=== PATIENT | male | born 1950 | race Caucasian/White ===

== ENCOUNTER 2020-10-29 08:44 | Outpatient (REF) | payer MEDICARE, OTHER, SELFPAY | END 2020-10-29 08:45 | disposition home or self-care (01) | LOC: HO.HMGCLDS 08:44 | PROVIDERS: PCP Internal Medicine; Visit Provider Internal Medicine | DX: Z20.822 Contact with and (suspected) exposure to COVID-19 (principal) | CPT/HCPCS: 36415; C9803; U0003; U0005 ==

== ENCOUNTER 2024-03-14 13:53 | Outpatient (AMB) | payer MEDICARE, OTHER, SELFPAY ==
--- NOTE | 2024-03-14 14:26 | MHC.OFFWIV ---
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 He states it has been there for a week or 2. It is very itchy and it just seems to be getting worse. He states his son had the same rash and he was given Kenalog cream and it went away. He is here asking for the Kenalog cream. Denies any fevers. He states he does have some sensitivities and was using the wrong laundry detergent and noticed he got itchy so he changed at. However this is a patch that has been persistent on his right ankle [facility] Social History Patient Tobacco Use Status: Never used Tobacco Review of Systems Const All systems reviewed & are unremarkable except as noted in HPI and below Physical Exam Vital Signs: Last Vital Signs Temp 98.0 F 03/14/24 14:30 Pulse 98 03/14/24 14:30 BP 142/82 H 03/14/24 14:30 Pulse Ox 97 03/14/24 14:30 Oxygen Delivery Method Room Air 03/14/24 14:30 BMI result Body Mass Index 27.4 Const General: cooperative, healthy appearing, comfortable, no acute distress and well developed Orientation/consciousness: patient oriented x3 Limitations: no limitations Eyes General: appearance normal, both eyes and all related structures Resp Effort & Inspection: normal respiratory effort and able to speak in complete sentences Skin Other: right lower extremity lateral near ankle has a slightly raised and erythematous, macular papular rash with crusted lesions; no warmth or other signs of infection noted Neuro General: patient oriented x3 Assessment & Plan Assessment & Plan (1) Dermatitis: Code(s): L30.9 - Dermatitis, unspecified Plan: Sent Kenalog cream to pharmacy Plan See above Medications: New triamcinolone acetonide 0.025% 1 appl topical BID 80 grams 0RF Coding Level of Care Code New Pt Level 3 (11960) Diagnoses Dermatitis L30.9
[2024-03-14 14:30] VITALS: BP 142/82; PULSE 98; TEMP 36.7; O2SAT 97; BMI 27.4
== END 2024-03-14 15:09 | disposition home or self-care (01) ==
PROVIDERS: PCP Internal Medicine; Visit Provider Physician Assistant
DX: L30.9 Dermatitis, unspecified (principal)
CPT/HCPCS: 99203

== ENCOUNTER 2024-04-22 17:09 | Emergency (ER) | payer MEDICARE, OTHER, SELFPAY ==
--- NOTE | ~2024-04-22 | CT_ITS ---
EXAMINATION: CT HEAD WITHOUT CONTRAST CLINICAL INFORMATION: Stroke protocol COMPARISON: None. TECHNIQUE: Multidetector CT examination of the head is performed without contrast. This CT examination was performed using dose optimization techniques as appropriate, variously including the following: *Automated exposure control *Adjustment of mA and/or kV according to patient size (this includes techniques or standardized protocols for targeted exams where dose is matched to indication/reason for exam; i.e. extremities or head) *Use of iterative reconstruction technique DLP: 1168 mGy-cm FINDINGS: There are artifacts present. There is no evidence of a recent intracranial hemorrhage or extra-axial collection. The midline structures are nondisplaced. The ventricles, cisterns, and sulci are within normal limits. There is no evidence of an intra-axial mass. There are no suspicious focal areas of abnormal brain attenuation. The baez-white interface is within normal limits. There is no evidence of acute territorial infarct. Moderately severe white matter low attenuation scattered bilaterally could be related to microangiopathy. The paranasal sinuses and mastoids are within normal limits. CT/CT head for stroke IMPRESSION: 1. There is no evidence of a recent intracranial hemorrhage. 2. No acute infarct. 3. Nonspecific white matter disease. This critical result was discussed with at 1741 on 04/22/24 and it was ascertained that the content and urgency of the report was understood at the time of direct communication.
--- NOTE | ~2024-04-22 | CT_ITS ---
EXAMINATION: CT ANGIOGRAM HEAD CT ANGIOGRAM NECK CLINICAL INFORMATION: Reason for Exam Stroke Protocol COMPARISON: None. TECHNIQUE: Initial noncontrast throw out clerk imaging of the head and neck was performed. Comparison is made with noncontrast head CT from earlier today. Test bolus sequences followed by intravenous administration 70 mL of Omnipaque 350. Helical imaging was performed in the axial plane from the aortic arch to the skull vertex. Delayed postcontrast imaging of the head was also performed. The data was processed at the hybrid technologist's workstation for generation of MIP sequences. Angled MIPs and volume rendered reformatted images were also generated at an offline 3D workstation. Stenoses are assessed in accordance with Vogel et al. Quantification of Carotid Stenosis on CT Angiography. AJR 2006. 27(1):13-19. This CT examination was performed using dose optimization techniques as appropriate, variously including the following: *Automated exposure control *Adjustment of mA and/or kV according to patient size (this includes techniques or standardized protocols for targeted exams where dose is matched to indication/reason for exam; i.e. extremities or head) *Use of iterative reconstruction technique DLP: 1548.72 mGy-cm mGy-cm FINDINGS: CT HEAD: No abnormal intracranial enhancement is visualized. Please see separately dictated CT head for additional findings. CTA HEAD: Anterior circulation: Right internal carotid artery: Atherosclerosis without flow-limiting stenosis. Right middle cerebral artery: Short segment occlusion in the right M2 posterior division with distal reconstitution. Right anterior cerebral artery: No hemodynamically significant stenosis. Left internal carotid artery: Atherosclerosis with areas of [id number] stenosis, most prominent in the supraclinoid segment. Left middle cerebral artery: No hemodynamically significant stenosis. Left anterior cerebral artery: No hemodynamically significant stenosis. Posterior circulation: Right vertebral artery: No hemodynamically significant stenosis. Left vertebral artery: No hemodynamically significant stenosis. Basilar artery: No hemodynamically significant stenosis. Right posterior cerebral artery: No hemodynamically significant stenosis. Left posterior cerebral artery: origin. Patent. No high flow vascular malformation or significant aneurysmal dilatation is visualized. The major dural venous sinuses are grossly within normal limits given arterial technique. CTA NECK: Aortic arch: Normal anatomy. Atherosclerosis of the thoracic aorta and proximal great vessels. Right common carotid artery: No hemodynamically significant stenosis. Right proximal internal carotid artery: Atherosclerosis without flow-limiting stenosis. Right mid/distal internal carotid artery: No hemodynamically significant stenosis. Left common carotid artery: No hemodynamically significant stenosis. Left proximal internal carotid artery: Atherosclerosis without flow-limiting stenosis. Left mid/distal internal carotid artery: No hemodynamically significant stenosis. Right vertebral artery: Severe stenosis at the origin. Otherwise patent. Left vertebral artery: No hemodynamically significant stenosis. CT NECK: [place] tonsilliths. Multilevel degenerative changes of the cervical spine with areas of moderate to high-grade canal stenosis noted. CT/CT angio head neck stroke IMPRESSION: CTA NECK: Severe stenosis at the right vertebral artery origin. Otherwise, no flow-limiting stenosis in the cervical carotid and vertebral arteries. Multilevel degenerative changes of the cervical spine with areas of moderate to high-grade canal stenosis noted. There is symptomatology referrable to this region, dedicated cervical spine MRI is recommended for further evaluation. CTA HEAD: Short segment occlusion of the right M2 posterior division with distal reconstitution. This critical result was discussed Dr. Manning at 6:08pm on 04/22/2024 and it was ascertained that the content and urgency of the report was understood at the time of direct communication.
[2024-04-22 17:13] VITALS: BP 173/87; PULSE 99; RESP 18; TEMP 36.8; O2SAT 99; BMI 26.8
--- NOTE | 2024-04-22 17:23 | ED_ITS ---
HPI - General Adult General Chief complaint: Stroke Stated complaint: slurred speech, drooling, weakness Time Seen by Provider: 04/22/24 17:33 Source: patient and family ([id number], Christine who is a nurse here at [facility]) Mode of arrival: ambulatory Limitations: no limitations History of Present Illness ED Provider: Dr. Alexis Manning HPI narrative: 74-year-old male with a history of hypertension, hyperlipidemia and kidney disease who presents emergency department for evaluation of left facial droop and drooling. Patient states he woke up at 07:00 hours and was feeling well. At 09:30 hours this morning he noted drooling but did not think much of the symptom. His family checked in on him at around 14:00 hours and thought that his jaw looked funny. His family checked in on him again a proximally 1 hour prior to coming to the emergency department and felt that he had a left facial droop and brought him to the emergency department to be seen. 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 The patient denied difficulty with word finding, headache, numbness or weakness. Related Data Home Medications ?Medication ?Instructions ?Recorded ?Confirmed amlodipine 10 mg tablet 10 mg PO DAILY 03/14/24 atenolol 25 mg tablet 25 mg PO DAILY 03/14/24 atorvastatin 10 mg tablet 10 mg PO DAILY 03/14/24 hydrochlorothiazide 25 mg tablet 25 mg PO DAILY 03/14/24 valsartan 160 mg tablet 160 mg PO DAILY 03/14/24 valsartan 320 mg tablet 320 mg PO DAILY 03/14/24 Previous Rx's ?Medication ?Instructions ?Recorded triamcinolone acetonide 0.025 % 1 appl topical BID #80 grams 03/14/24 topical cream Allergies Allergy/AdvReac Type Severity Reaction Status Date / Time pollen extracts Allergy congestion Verified 04/22/24 17:21 Review of Systems 2 Review of Systems: Yes all other systems are reviewed and are negative PMFSH Past Medical History PMF Narrative: Social history: The patient denies tobacco use. He states that he drinks 1 or 2 glasses of beer or 1 or 2 glasses of wine per day. He denies drug use Social History Social History Patient Tobacco Use Status: Never used Tobacco Advance Directives Date on File: 04/22/24 Physical Exam ED Vital Signs: Vital Signs - 24 hr 04/22/24 17:13 04/22/24 18:13 04/22/24 18:44 Temperature 98.2 F Pulse Rate 99 100 100 Respiratory Rate 18 14 16 Blood Pressure 173/87 H 167/87 H 151/82 H Pulse Oximetry 99 98 98 Oxygen Delivery Method Room Air Room Air Room Air 04/22/24 18:59 Temperature Pulse Rate 99 Respiratory Rate 16 Blood Pressure 153/89 H Pulse Oximetry 98 Oxygen Delivery Method Room Air BMI result Body Mass Index 26.8 Vital signs revealed elevated blood pressure 173/87 which improved to 150 1/82 without treatment. Vital signs were otherwise Exam: General: Awake, alert in no distress Head: Normocephalic, atraumatic, patient has a left facial droop that spares the forehead EENT: PERRL, Lids normal, sclera normal, conjunctiva normal, nose normal , ears normal, throat without erythema or exudates Neck: Supple, no adenopathy Lung: breath sounds symmetric, no wheezing, rales or rhonchi Chest: symmetric movement, nontender Heart: Irregular irregular rhythm with normal rate, normal S1, S2 no murmurs or rubs Abdomen: soft, non-tender, nondistended, normal bowel sounds Back: no vertebral tenderness, no CVAT Extremities: no deformities, moves all extremities symmetrically Neuro: Awake, alert, oriented, normal speech, cranial nerves revealed a left facial droop which spares the forehead, moves all extremities symmetrically with normal strength Psych: Pleasant, cooperative NIH Stroke Scale Internal: Initial- Upon Arrival Level of Consciousness: Alert Level of Consciousness Questions: Answers both questions correctly Level of Consciousness Commands: Performs both tasks correctly Best Gaze: Normal Visual: No visual loss Facial Palsy: Minor paralyis Motor Arm (Right): No drift Motor Arm (Left): No drift Motor Leg (Right): No drift Motor Leg (Left): No drift Limb Ataxia: Absent Sensory: Normal Best Language: No aphasia Dysarthia: Normal Extinction and Inattention: No abnormality Score: 1 Course Course Course Narrative: This is an RME: Additional HPI, ROS, PE not included below will be deferred to primary provider. RME assessment and note performed by: Jolynn Davidson PA-C This is a 74-year-old male, with a history of hypertension, hyperlipidemia, and CKD stage 2, who presents emergency department with complaints of left-sided facial droop, drooling, trouble speaking. Patient states that he slept well and woke up feeling very tired this morning. His daughter who is with him states that at 8:00 a.m. he has appear to be okay however states that when she returned back home at 2:00 p.m. she noticed that he had a slight left-sided facial droop and was having trouble speaking. He reports that he did have uncontrolled drooling with leaning forward. Patient with slight left-sided facial droop, able to wrinkle forehead, no pronator drift. He is ambulatory.. Patient is hypertensive. He is not on blood thinners. Discussed case with my attending physician, Dr. Manning, stroke protocol initiated Plan: Stroke protocol, patient immediately brought back to the emergency room for further management Medications Administered Discontinued Medications Generic Name Dose Route Start Last Admin Trade Name Freq PRN Reason Stop Dose Admin Sodium Chloride 1,000 mls @ 999 mls/hr 04/22/24 18:08 04/22/24 18:14 Ns IV 04/22/24 19:08 999 mls/hr .Q1H1M STA Administration Iohexol 100 ml 04/22/24 17:46 04/22/24 17:46 Iohexol 350 Mg/Ml 100 Ml Infus..Btl IV 04/22/24 17:47 70 ml ONCE ONE Administration Medical Decision Making Medical Decision Making MDM Narrative: 74-year-old male with a history of hypertension, hyperlipidemia and kidney disease who presents emergency department for evaluation of left facial droop and drooling with last well-known time at 09:30 hours. Patient had no other concerning symptoms. Physical examination did reveal mild left facial droop which spared the forehead bilaterally. Patient's NIH stroke scale was 1. Patient did have an irregular irregular heart rate and 12 EKG is consistent with atrial fibrillation which is new onset. Differential diagnosis: ?Includes but is not limited to TIA, stroke, putnam palsy, anemia, electrolyte abnormalities, atrial fibrillation Following evaluation was ordered: CBC, BMP, PT/INR, PTT, troponin, lipid panel, urinalysis, urine tox, COVID-19, CT head without IV contrast, CT head and neck angiogram Patient was initially treated with the following: Normal saline x1 L IV Course: 19:23 My interpretation patient's laboratory evaluation: CBC was normal. INR elevated 1.2. PTT normal 28.6. BUN elevated 27 with a normal creatinine of 1.38, GFR was 50-no baseline values for comparison. Urinalysis revealed a high specific gravity otherwise unremarkable. Urine tox was negative. COVID-19 was negative. Lipid panel was normal. High sensitive troponin I was detectable but not elevated at 19.7 (normal range is less than 3.5-35) CT scan of the brain without IV contrast revealed white matter disease otherwise unremarkable. CT scan of head and neck angiogram revealed short segment occlusion of the MCA a in the right M2 posterior division with distal reconstitution. Given the right MCA M2 occlusion I did discuss this patient with our covering neurologist, Dr. Sheppard and he recommended that I contact [facility] interventional Neurology. Unfortunately, [facility]'s neuro interventionalist at this time a sick and there is no coverage therefore they are close to transfer. I did discuss the patient's presentation with the neuro interventionalist at [facility] and they did accept the patient as an ED to ED transfer. The neuro interventionalist recommended against starting heparin or antiplatelet medications at this time to avoid hemorrhagic she called when like the stroke starting you avoid hemorrhagic transformation of the stroke. Also, the patient was outside of the thrombolytics window and this was not considered. CT scan of the neck did reveal severe stenosis at the right vertebral artery origin. Otherwise, no flow-limiting stenosis in the cervical carotid and vertebral arteries. I did discuss the need for transfer with the patient and the patient's daughter and they did agree to transfer to [facility]. Patient will be sent by ALS ambulance. Admission/Observation Consideration of admission/observation: Escalation of care including admission/observation considered Lab Data MDM Lab Attestation statement: I reviewed the patient's lab results. 04/22/24 17:54 04/22/24 17:54 Labs: Lab Results 04/22/24 04/22/24 04/22/24 Range/Units 17:39 17:54 18:22 WBC 6.6 (4.8-10.8) X10*3/uL RBC 4.64 (4.60-5.80) X10*6/uL Hgb 14.1 (14.0-18.0) g/dl Hct 43.1 (42.0-52.0) % MCV 92.9 (80.0-98.0) fL MCH 30.4 (27.0-33.0) pg MCHC 32.7 (31.0-36.0) g/dl RDW 14.6 (11.0-16.0) % Plt Count 182 (160-400) X10*3/uL MPV 11.5 (9.4-12.4) fL Immature Gran % (Auto) 0.3 (0.0-0.4) % Neut % (Auto) 48.4 (45-73) % Lymph % (Auto) 35.7 (20-40) % [place] % (Auto) 13.1 H (2-11) % Eos % (Auto) 1.7 (0-4) % Baso % (Auto) 0.8 (0-2) % Lymph # (Auto) 2.3 (1.2-4.9) X10*3/uL Crowley # (Auto) 0.9 (0.1-1.2) X10*3/uL Eos # (Auto) 0.1 (0.0-0.4) X10*3/uL Baso # (Auto) 0.1 (0.0-0.2) X10*3/uL Abs Immat Gran (auto) 0.02 (0.00-0.03) X10*3/uL Absolute Neuts (auto) 3.2 (2.0-8.3) x10*3/uL Absolute Nucleated RBC 0.000 (0.0-0.012) X10*3/uL Nucleated RBC % (auto) 0.0 (0.0-0.2) /100WBC PT 14.3 H (11.1-13.3) SEC INR 1.2 H (0.9-1.1) APTT 28.6 (26.0-36.8) SEC Sodium 139 (135-145) mmol/L Potassium 3.5 (3.3-5.1) mmol/L Chloride 105 (96-108) mmol/L Carbon Dioxide 24 (22-29) mmol/L Anion Gap 14 (12-20) BUN 27 H (9-16) mg/dL Creatinine 1.38 (0.5-1.4) mg/dL Estim Creat Clear Calc 43.9 Estimated GFR 50 POC Glucose 87 (60-115) mg/dL Random Glucose 96 (60-115) mg/dL Calcium 9.5 (8.4-10.2) mg/dL Troponin I High Sens 19.7 (<3.5-35.0) ng/L Triglycerides 87 (<150) mg/dL Cholesterol 143 (<200) mg/dL LDL Cholesterol, Calc 77 (<100) mg/dL HDL Cholesterol 49 (>40) mg/dL Urine Color Yellow Urine Appearance Clear Urine pH 5.5 (5.0-9.0) Ur Specific [place] >= 1.030 H (1.005-1.025) Urine Protein Negative (Neg-Trace) mg/dL Urine Glucose (UA) Negative (Negative) mg/dL Urine Ketones Trace (Negative) mg/dL Urine Blood Negative (Negative) Urine Nitrite Negative (Negative) Ur Leukocyte Esterase Negative (Negative) Urine Opiates Screen Not Detected (Not Detect) Ur Buprenorphine Scrn Not Detected (Not Detect) ng/mL Ur Oxycodone Screen Not Detected (Not Detect) ng/mL Urine Methadone Screen Not Detected (Not Detect) ng/mL Urine Fentanyl Screen Not Detected (Not Detect) Ur Barbiturates Screen Not Detected (Not Detect) Ur Phencyclidine Scrn Not Detected (Not Detect) Ur Amphetamines Screen Not Detected (Not Detect) U Benzodiazepines Scrn Not Detected (Not Detect) Urine Cocaine Screen Not Detected (Not Detect) U Marijuana (THC) Screen Not Detected (Not Detect) COVID-19 (SADA) Negative (Negative) COVID-19 Clin Com See Note Independent Interpretation I performed an independent interpretation of an: EKG Interpretation: My interpretation of the patient's 12 EKG done at 17:35 hours is as follows: Atrial fibrillation with a rate of 104, normal QRS interval of 84, prolonged QTC interval of 489, Q-waves in 3 and AVF with no ST segment elevation or depression, no significant T-wave abnormalities. Radiology Impression Discussion of test interpretation with radiology: I discussed test interpretation with the radiologist Radiologist Impression: CT head for stroke IMPRESSION: 1. There is no evidence of a recent intracranial hemorrhage. 2. No acute infarct. 3. Nonspecific white matter disease. This critical result was discussed with at 1741 on 04/22/24 and it was ascertained that the content and urgency of the report was understood at the time of direct communication. Dictated By: Jhon Nina MD CT angio head neck stroke IMPRESSION: CTA NECK: Severe stenosis at the right vertebral artery origin. Otherwise, no flow-limiting stenosis in the cervical carotid and vertebral arteries. Multilevel degenerative changes of the cervical spine with areas of moderate to high-grade canal stenosis noted. There is symptomatology referrable to this region, dedicated cervical spine MRI is recommended for further evaluation. CTA HEAD: Short segment occlusion of the right M2 posterior division with distal reconstitution. This critical result was discussed Dr. Manning at 6:08pm on 04/22/2024 and it was ascertained that the content and urgency of the report was understood at the time of direct communication. Dictated By: Binu Guzmán MD Critical Care Time Critical Care Time Critical Care Time: Yes Total Critical Care Time: 80 Attestation: Critical Care: The patient was critically ill with a high probability of imminent or life threatening deterioration. I spent greater than 30 minutes of discontinuous time evaluating the patient,delivering critical care at the bedside, discussing and evaluating pertinent data with consultants. Critical care time does not include time spent performing separately billable procedures or teaching. Total time spent performing critical care was minutes. Discharge Plan Discharge Clinical Impression: Acute right MCA stroke, Atrial fibrillation, new onset Patient Disposition: [facility] Transfer Details: ED to ED transfer to [facility], accepting attending is Prescriptions: No Action atorvastatin 10 mg tablet 10 mg PO DAILY valsartan 320 mg tablet 320 mg PO DAILY hydrochlorothiazide 25 mg tablet 25 mg PO DAILY amlodipine 10 mg tablet 10 mg PO DAILY atenolol 25 mg tablet 25 mg PO DAILY valsartan 160 mg tablet 160 mg PO DAILY triamcinolone acetonide 0.025 % cream 1 appl topical BID Qty: 80 0RF Print Language: Occitan
--- NOTE | 2024-04-22 17:23 | ECG_ITS ---
Test Reason : RULE OUT STROKE Blood Pressure : / mmHG Vent. Rate : 104 BPM Atrial Rate : 000 BPM P-R Int : 000 ms QRS Dur : 084 ms QT Int : 372 ms P-R-T Axes : 000 -16 154 degrees QTc Int : 489 ms Atrial fibrillation with rapid ventricular response Inferior infarct , age undetermined Abnormal ECG No previous ECGs available Referred By: Jolynn Davidson Electronically Signed By:VAMSI HOOD MD
[2024-04-22 17:44] LABS: Glucose, Whole Blood 87 mg/dL (60-115)
--- NOTE | 2024-04-22 17:45 | PC.NURSE ---
Patient from waiting room, per daughter patient was ok this morning around 0800, came back to pick her son up from him at 1400, patient drooling, drooping arm.
[2024-04-22] MEDS: iohexoL 350 MG/ML 100 ML INFUS..BTL IV (17:46)
[2024-04-22 18:00] LABS: MANUAL DIFF FLAG NO
[2024-04-22 18:13] VITALS: BP 167/87; PULSE 100; RESP 14; O2SAT 98
[2024-04-22 18:14] LABS: INTERNATIONAL NORM RATIO 1.2 (0.9-1.1); Prothrombin Time 14.3 SEC (11.1-13.3)
[2024-04-22] MEDS: 0.9 % Sodium Chloride 1,000 ML 999 ML IV (18:14)
[2024-04-22 18:17] LABS: Partial Thromboplastin Time 28.6 SEC (26.0-36.8)
[2024-04-22 18:23] LABS: Basophils Absolute Auto 0.1 X10*3/uL (0.0-0.2); Basophils Percent Auto 0.8 % (0-2); Eosinophils Absolute Auto 0.1 X10*3/uL (0.0-0.4); Eosinophils Percent Auto 1.7 % (0-4); Hematocrit 43.1 % (42.0-52.0); Hemoglobin 14.1 g/dl (14.0-18.0); Imm Gran Abs Auto 0.02 X10*3/uL (0.00-0.03); Imm Gran Pct Auto 0.3 % (0.0-0.4); Lymphocytes Absolute Auto 2.3 X10*3/uL (1.2-4.9); Lymphocytes Percent Auto 35.7 % (20-40); Mean Corpuscular HGB Conc 32.7 g/dl (31.0-36.0); Mean Corpuscular Hemoglobin 30.4 pg (27.0-33.0); Mean Corpuscular Volume 92.9 fL (80.0-98.0); Mean Platelet Volume 11.5 fL (9.4-12.4); Monocytes Absolute Auto 0.9 X10*3/uL (0.1-1.2); Monocytes Percent Auto 13.1 % (2-11); Neutrophils Absolute Auto 3.2 x10*3/uL (2.0-8.3); Neutrophils Percent Auto 48.4 % (45-73); Platelet Count 182 X10*3/uL (160-400); Red Blood Count 4.64 X10*6/uL (4.60-5.80); Red Cell Distribution Width 14.6 % (11.0-16.0); White Blood Count 6.6 X10*3/uL (4.8-10.8)
[2024-04-22 18:30] LABS: Anion Gap 14 (12-20); Blood Urea Nitrogen 27 mg/dL (9-16); Calcium 9.5 mg/dL (8.4-10.2); Carbon Dioxide 24 mmol/L (22-29); Chloride 105 mmol/L (96-108); Cholesterol 143 mg/dL (<200); Creatinine Clr Calc Pharmacy 43.9; Estimated Glomerular Filt Rate 50; Glucose Random 96 mg/dL (60-115); HDL Cholesterol 49 mg/dL (>40); LDL Cholesterol Calculated 77 mg/dL (<100); Potassium 3.5 mmol/L (3.3-5.1); Sodium 139 mmol/L (135-145); Triglycerides 87 mg/dL (<150)
[2024-04-22 18:34] LABS: Appearance Urine Clear; Color Urine Yellow; Glucose Urine UA Negative (Negative); Leukocyte Esterase Urine Negative (Negative); Nitrite Urine Negative (Negative); PH 5.5 (5.0-9.0); Specific Gravity - Urine >= 1.030 (1.005-1.025); Urine Blood Negative (Negative); Urine Ketones Trace mg/dL (Negative); Urine Protein Negative (Neg-Trace)
[2024-04-22 18:36] LABS: Troponin-I High Sensitivity 19.7 ng/L (<3.5-35.0)
[2024-04-22 18:39] LABS: Amphetamine Screen Urine Not Detected (Not Detect); Barbiturates, Urine Not Detected (Not Detect); Benzodiazepines Screen Urine Not Detected (Not Detect); Buprenorphine Scr Not Detected (Not Detect); Cannabinoid Screen Urine Not Detected (Not Detect); Cocaine Screen Urine Not Detected (Not Detect); Fentanyl, urine Not Detected (Not Detect); Methadone Screen, Urine Not Detected (Not Detect); Opiate Screen Urine Not Detected (Not Detect); Oxycodone Screen Urine Not Detected (Not Detect); Phencyclidine Screen Urine Not Detected (Not Detect)
[2024-04-22 18:44] VITALS: BP 151/82; PULSE 100; RESP 16; O2SAT 98
[2024-04-22 18:44] LABS: COVID-19 Test Negative (Negative); IDNOW Serial# 58CA691E
[2024-04-22 18:59] VITALS: BP 153/89; PULSE 99; RESP 16; O2SAT 98
--- NOTE | 2024-04-22 19:41 | PC.NURSE ---
Spoke to ED RN Melinda regarding patient's transfer, all questions answered. Patient to be transferred pend EMS arrival.
[2024-04-22 19:50] LABS: Stroke Lab Use COMPLETE
[2024-04-22 21:14] VITALS: BP 145/86; PULSE 88; RESP 16; O2SAT 98
[2024-04-22 21:15] LABS: Prothrombin Time Whole Bld POC 14.9 sec (11.1-13.5); ~PT, ~INR - Anti Coag Clinic 1.2 (0.9-1.1)
[2024-04-22 21:27] VITALS: BP 145/86; PULSE 88; RESP 16; TEMP 36.9; O2SAT 98
== END 2024-04-22 21:29 | disposition short-term general hospital (02) ==
PROVIDERS: Physician Assistant Medical; Emergency Provider Emergency Medicine Emergency Medical Services; PCP Internal Medicine
DX: I63.511 Cerebral infarction due to unspecified occlusion or stenosis of right middle cerebral artery (principal); I48.91 Unspecified atrial fibrillation; R29.810 Facial weakness; R29.701 NIHSS score 1; R51.9 Headache, unspecified; Z03.818 Encounter for observation for suspected exposure to other biological agents ruled out; E78.5 Hyperlipidemia, unspecified; I12.9 Hypertensive chronic kidney disease with stage 1 through stage 4 chronic kidney disease, or unspecified chronic kidney disease; N18.2 Chronic kidney disease, stage 2 (mild); Z79.02 Long term (current) use of antithrombotics/antiplatelets; Z79.899 Other long term (current) drug therapy
CPT/HCPCS: 36415; 70450; 70496; 70498; 80048; 80061; 80307; 81003; 82947; 84484; 85025; 85610; 85730; 87635; 93005; 99285; Q9967

== ENCOUNTER → 2024-04-22 17:23 | Outpatient (BNV) | payer MEDICARE, OTHER, SELFPAY | PROVIDERS: Emergency Provider Emergency Medicine Emergency Medical Services; PCP Internal Medicine; Visit Provider Internal Medicine Cardiovascular Disease | DX: R94.31 Abnormal electrocardiogram [ECG] [EKG] (principal) | CPT/HCPCS: 93010 ==

== ENCOUNTER 2024-10-24 15:57 | Outpatient (REF) | payer MEDICARE, OTHER, SELFPAY ==
--- OUTSIDE RECORDS SUMMARY | 2024-10-24 16:35 | XMS_ITS | Clinical Summary ---
Author Organization [facility], Address [address] [place] [address] Phone Care Team Providers Care Algebraist Name Role Phone Namrata Reardon MD Primary Care Provider [phone] Allergies No known active allergies Medications atenolol (TENORMIN) 25 MG tablet Take 25 mg by mouth 1 (one) time each day 6 Active ergocalciferol (VITAMIN D-2) 1.25 MG (30299 UT) capsule Vitamin D2 1,250 mcg (50,000 unit) capsule Active atorvastatin (LIPITOR) 10 MG tablet Take 10 mg by mouth 1 (one) time each day 2 Active hydroCHLOROthi azide 25 MG tablet Take 1 tablet (25 mg total) by mouth 1 (one) time each day 30 tablet 11 4 Active Eliquis 5 MG tablet Take 1 tablet (5 mg total) by mouth in the morning and 1 tablet (5 mg total) in the evening. 360 tablet 3 4 Active valsartan (DIOVAN) 320 MG tablet TAKE 1 TABLET BY MOUTH 1 TIME EACH DAY. 90 tablet 3 4 Active amLODIPine (NORVASC) 10 MG tablet TAKE 1 TABLET BY MOUTH 1 TIME EACH DAY. 90 tablet 3 5 Active amLODIPine (NORVASC) 10 MG tablet Take 1 tablet (10 mg total) by mouth 1 (one) time each day 90 tablet 3 3 10/21/19 25 Discontinued Active Problems Problem Noted Date Diagnosed Date Aortic valve regurgitation 11/14/2020 Stage 3a chronic kidney disease 12/15/2019 Overview (09/17/2020): Update for Diagnosis Load Hypercholesterolemia 12/15/2019 Resolved Problems Problem Noted Date Diagnosed Date Resolved Date Chronic kidney disease stage 2 11/14/2020 11/28/2020 Hypertensive disorder 01/01/20112022 Encounters Date Type Department Care Team Description 10/21/2024 Refill [facility] [address] [place] [address] Jaswant Cheung MD 10/19/2024 9:40 AM EST Office Visit [facility] [address] [place] [address] Jaswant Cheung MD Stage 3a chronic kidney disease (HCC) (Primary Dx) 09/15/2024 Documentation Only [facility] [address] [place] [address] Hailey Gillespie MA 09/15/2024 Documentation Only [facility] [address] [place] [address] Hailey Gillespie MA 09/10/2024 Refill [facility] [address] [place] [address] Jaswant Cheung MD from Last 3 Months Immunizations Name Administration Dates Next Due Tdap 04/20/2013 Family History Medical History Relation Comments Hypertension Father Relation Status Comments Father Social History Tobacco Use Types Packs/Day Years Used Date Smoking Tobacco: Never Smokeless Tobacco: Never Sex and Gender Information Value Date Recorded Sex Assigned at Not on file Legal Sex Male 4:37 PM EST Gender Identity Not on file Sexual Orientation Not on file Last Filed Vital Signs Vital Sign Reading Time Taken Comments Blood Pressure 148/78 01/21/2023 9:03 AM EDT Pulse - - Temperature - - Respiratory Rate - - Oxygen Saturation - - Inhaled Oxygen Concentration - - Weight 79 kg (174 lb 2.7 oz) 04/08/2019 12:00 PM EDT Height 170.2 cm (5' 7 ) 07/28/2019 12:00 PM EST Body Mass Index 27.28 04/08/2019 12:00 PM EDT Plan of Treatment Upcoming Encounters Date Type Department Care Team (Late st Contact Info) Description 03/01/2025 4:00 PM EDT Office Visit [facility] [place], [address] [place] [address] Jaswant Cheung MD [address] [place] [phone] Health Maintenance Due Date Last Done Comments Pneumococcal Vaccine: 65+ Ye ars (1 of 2 - PCV) 1956 Colorectal Cancer Screening: Annual FOBT 1999 Colorectal Cancer Screening: Colonoscopy 1999 Colorectal Cancer Screening: Sigmoidoscopy 1999 Influenza Vaccine (#1) 2024 Hepatitis B Vaccine Aged Out No longe r eligible based on patient's age to complete this topic Insurance [facility]ARE [facility] Care Teams Algebraist Relationship Specialty Start Date End Date Namrata Reardon MD PCP - General Internal Medicine 04/26/24
--- OUTSIDE RECORDS SUMMARY | 2024-10-24 16:35 | XMS_ITS | Encounter Summary ---
Author Organization [facility] [place], Address [address] [place] [address] Phone Care Team Providers Care Card Feeder Name Role Phone Namrata Reardon MD Primary Care Provider [phone] Encounter Details Date Type Department Care Team (Late st Contact Info) Description 03/18/2022 Documentation Only [facility] [address] [place] [address] Jaswant Cheung MD [address] [place] [address] [place] [address] Social History Tobacco Use Types Packs/Day Years Used Date Smoking Tobacco: Never Smokeless Tobacco: Never Sex and Gender Information Value Date Recorded Sex Assigned at Not on file Legal Sex Male 4:37 PM EST Gender Identity Not on file Sexual Orientation Not on file documented as of this encounter Plan of Treatment Upcoming Encounters Date Type Department Care Team (Late st Contact Info) Description 03/01/2025 4:00 PM EDT Office Visit [facility] [address] [place] [address] Jaswant Cheung MD [address] [place] [address] [place] [phone] documented as of this encounter Visit Diagnoses Not on filedocumented in this encounter Care Teams Card Feeder Relationship Specialty Start Date End Date Namrata Reardon MD PCP - General Internal Medicine 04/26/24 documented as of this encounter
--- OUTSIDE RECORDS SUMMARY | 2024-10-24 16:35 | XMS_ITS | Encounter Summary ---
Author Organization [facility] [place], Address [address] [place] [address] Phone Care Team Providers Care Radiator Fitter Name Role Phone Namrata Reardon MD Primary Care Provider [phone] Reason for Visit * Reason Comments Med Refill Encounter Details Date Type Department Care Team (Late Contact Info) Description 12/14/2020 Refill [facility] [address] [place] [phone] Jaswant Cheung MD [address] [facility] [place] [address] Social History Tobacco Use Types Packs/Day Years Used Date Smoking Tobacco: Never Smokeless Tobacco: Never Sex and Gender Information Value Date Recorded Sex Assigned at Not on file Legal Sex Male 4:37 PM EST Gender Identity Not on file Sexual Orientation Not on file documented as of this encounter Plan of Treatment Upcoming Encounters Date Type Department Care Team (Late Contact Info) Description 03/01/2025 4:00 PM EDT Office Visit [facility] [place], [address] [facility] [phone] Jaswant Cheung MD [address] [facility] [place] [phone] documented as of this encounter Visit Diagnoses Not on filedocumented in this encounter Care Teams Radiator Fitter Relationship Specialty Start Date End Date Namrata Reardon MD PCP - General Internal Medicine 04/26/24 documented as of this encounter
--- OUTSIDE RECORDS SUMMARY | 2024-10-24 16:35 | XMS_ITS | Encounter Summary ---
Author Organization [facility] [place], Address [address] [place] [address] Phone Care Team Providers Care Rough And Truing Machine Operator Name Role Phone Namrata Reardon MD Primary Care Provider [phone] Encounter Details Date Type Department Care Team (Late st Contact Info) Description 10/19/2024 9:40 AM EST Office Visit [facility] [address] [place] [phone] Jaswant Cheung MD [address] [place] [address] [place] [phone] Stage 3a chronic kidney disease (HCC) (Primary Dx) Social History Tobacco Use Types Packs/Day Years Used Date Smoking Tobacco: Never Smokeless Tobacco: Never Sex and Gender Information Value Date Recorded Sex Assigned at Not on file Legal Sex Male 4:37 PM EST Gender Identity Not on file Sexual Orientation Not on file documented as of this encounter Progress Notes * Jaswant Cheung MD - 10/19/2024 9:40 AM EST Images from the original note were not included. PATIENT: Andrea Conway : 1950 ENCOUNTER: 10/19/2024 PCP: Namrata Reardon MD CHIEF COMPLAINT: Kidney Problem HPI: Andrea Conway is a 74 y.o. year old male with a history of CKD stage IIIa in the setting of longstanding hypertension status post recent MCA stroke who now presents for further evaluation of his recent lab testing. The patient otherwise is feeling quite well. The patient continues to reasonablywell and at this point has no new symptoms. His blood pressure control and excellent at home. ROS: Constitutional: No fever. Respiratory: No shortness of breath. Cardiovascular: No chest pain. Gastrointestinal: No abdominal pain, nausea or vomiting. Genitourinary: No hematuria. All other systems reviewed and are negative. PAST MEDICAL HISTORY: Patient Active Problem List Diagnosis Date Noted Aortic valve regurgitation 11/14/2020 Stage 3a chronic kidney disease (HCC) 12/15/2019 Hypercholesterolemia 12/15/2019 PAST SURGICAL HISTORY: History reviewed. No pertinent surgical history. SOCIAL HISTORY: Social History Tobacco Use Smoking status: Never Smokeless tobacco: Never Substance Use Topics Alcohol use: Not on file FAMILY HISTORY: Family History Problem Relation Age of Onset Hypertension Father MEDICATIONS: Outpatient Encounter Medications as of 10/19/2024 Medication Sig Dispense Refill amLODIPine (NORVASC) 10 MG tablet Take 1 tablet (10 mg total) by mouth 1 (one) time each day 90 tablet 3 atenolol (TENORMIN) 25 MG tablet Take 25 mg by mouth 1 (one) time each day atorvastatin (LIPITOR) 10 MG tablet Take 10 mg by mouth 1 (one) time each day Eliquis 5 MG tablet Take 1 tablet (5 mg total) by mouth in the morning and 1 tablet (5 mg total) inthe evening. 360 tablet 3 ergocalciferol (VITAMIN D-2) 1.25 MG (48662 UT) capsule Vitamin D2 1,250 mcg (50,000 unit) capsule hydroCHLOROthiazide 25 MG tablet Take 1 tablet (25 mg total) by mouth 1 (one) time each day 30 tablet 11 valsartan (DIOVAN) 320 MG tablet TAKE 1 TABLET BY MOUTH 1 TIME EACH DAY. 90 tablet 3 No facility-administered encounter medications on file as of 10/19/2024. MEDICATION REVIEW: I have reviewed the patient's medication regimen. ALLERGIES: has No Known Allergies. LABS: Chemistry Lab Units 09/15/24 0839 08/24/24 0746 04/09/23 0817 CREATININE mg/dL 1.37* 1.35* 1.2 BUN mg/dL 34* 25 26* POTASSIUM mmol/L 3.8 4.0 4.6 SODIUM mmol/L 138 139 138 CO2 mmol/L 27 27 23 CHLORIDE mmol/L 105 105 104 ALBUMIN g/dL -- 3.9 -- EGFRNAFR ML/MIN/1.73 M2 -- -- 67 Bone Mineral Lab Units 09/15/24 0839 08/24/24 0746 04/09/23 0817 CALCIUM mg/dL 9.2 9.7 9.2 ALK PHOS unit/L -- 75 -- LABORATORY REVIEW: I have reviewed the labs noted above as well as in the chart, in [facility] and in Care Everywhere. DOCUMENTATION REVIEW: I have reviewed the applicable outside notes located in the chart, in [facility]IS and in Care Everywhere. ASSESSMENT: 1. Stage 3a chronic kidney disease (HCC) Delightful 74-year-old gentleman with a history of longstanding CKD stage IIIa with a baseline serum creatinine of 1.2 to 1.4 mg/dL dating back to at least 2009 now presents for further evaluation. At this point his current medical issues include 1. CKD-The patient is due for repeat lab work and at this point given his excellent blood pressure control and not feel he requires any additional intervention. 2. Hypertension-I am very happy with the patient's current level of blood pressure control and do not feel he requires any additional medication manipulation. The patient will watch for orthostatic symptoms and continue to monitor his blood pressure closely at home. I have not made any other changes to his current medical regimen. 3. MCA stroke-the patient is doing extremely well. He feels great. He continues on his Eliquis therapy. There is no need for additional intervention at this time. This visit was provided through telephone and the patient has consented to this type of visit. The duration of this visit was 12 minutes. No orders of the defined types were placed in this encounter. documented in this encounter Plan of Treatment Upcoming Encounters Date Type Department Care Team (Late st Contact Info) Description 03/01/2025 4:00 PM EDT Office Visit [facility] [place], [address] [place] [phone] Jaswant Cheung MD [address] [place] [phone] documented as of this encounter Visit Diagnoses Diagnosis Stage 3a chronic kidney disease (HCC)- Primary documented in this encounter Care Teams Rough And Truing Machine Operator Relationship Specialty Start Date End Date Namrata Reardon MD PCP - General Internal Medicine 04/26/24 documented as of this encounter
--- OUTSIDE RECORDS SUMMARY | 2024-10-24 16:35 | XMS_ITS | Encounter Summary ---
Author Organization [facility] [place], Address [address] [place] [address] Phone Care Team Providers Care Mortgage Counselor Name Role Phone Namrata Reardon MD Primary Care Provider [phone] Encounter Details Date Type Department Care Team (Late st Contact Info) Description 09/15/2024 Documentation Only [facility] [address] [place] [phone] Hailey Gillespie[place]TH[place], [place] [address] [place] [phone] Social History Tobacco Use Types Packs/Day Years [...] Visit [facility] [address] [place] [phone] Jaswant Cheung MD [address] [place] [address] [place] [phone] documented as of this encounter Visit Diagnoses Not on filedocumented in this encounter Care Teams Mortgage Counselor Relationship Specialty Start Date End Date Namrata Reardon MD PCP - General Internal Medicine 04/26/24 documented as of this encounter
--- OUTSIDE RECORDS SUMMARY | 2024-10-24 16:35 | XMS_ITS | Clinical Summary ---
Author Organization [facility] Address [address] [place] [address] Care Team Providers Care Tank Insulator Rubber Name Role Phone Corey Herbert MD Primary Care Provider [phone] Allergies No known active allergies Medications Medication Sig Dispensed Refills Start Date End Date Status valsartan (DIOVAN) 320 MG tablet Take 1 tablet (320 mg total) by mouth daily. Active atenolol (TENORMIN) 25 MG tablet Take 1 tablet (25 mg total) by mouth daily. Active atorvastatin (LIPITOR) 10 MG tablet Take 1 tablet (10 mg total) by mouth daily. Active amLODIPine (NORVASC) 10 MG tablet Take 1 tablet (10 mg total) by mouth daily. Active hydroCHLOROthiazide (HYDRODIURIL) 12.5 MG tablet Take 1 tablet (12.5 mg total) by mouth daily. Take 12.5 mg on MWF Active apixaban (ELIQUIS) 5 MG tabletIndications:CVA (cerebral vascular accident) (HCC) Take 1 tablet (5 mg total) by mouth every 12 (twelve) hours around the clock. 60 tablet 1 04/24/2024 Active Active Problems Problem Noted Date Diagnosed Date Acute ischemic right MCA stroke 04/22/2024 Social History Tobacco Use Types Packs/Day Years Used Date Smoking Tobacco: Never Assessed Sex and Gender Information Value Date Recorded Sex Assigned at Male 04/22/2024 11:20 PM EDT Gender Identity Male 04/22/2024 11:20 PM EDT Sexual Orientation Heterosexual (straight) 04/22 11:20 PM EDT Last Filed Vital Signs Vital Sign Reading Time Taken Comments Blood Pressure 172/78 04/24/2024 8:18 AM EDT Pulse 81 04/24/2024 8:18 AM EDT Temperature 36.2 ??C (97.2 ??F) 04/24/2024 8:18 AM ED T Respiratory Rate 16 04/24/2024 8:18 AM EDT Oxygen Saturation 98% 04/24/2024 8:18 AM EDT Inhaled Oxygen Concentration - - Weight 82.2 kg (181 lb 3.5 oz) 04/23/2024 1:00 A M EDT Height 170.2 cm (5' 7.01 ) 04/23/2024 1:00 AM ED T Body Mass Index 28.38 04/23/2024 1:00 AM EDT Plan of Treatment Health Maintenance Due Date Last Done Comments Hepatitis C Virus Screening 1950 DTaP/Tdap/Td Vaccines (1 - Tdap) 1969 Colonoscopy 1995 Pneumococcal Vaccines 50+ (1 of 1 - PCV) 2000 Zoster (Shingles) Vaccine (1 of 2) 2000 Influenza Vaccine 04/14/2024 COVID-19 Vaccine ( - 2023-2 5 season) 2024 RSV Vaccine 60 years and old er and Patients (1 - 1-dose 75+ series) 2025 Hepatitis B Vaccines Aged Out No long er eligible based on patient's age to complete this topic Advance Directives * Full Code (Latest Code Status on File) Date Activated Date Inactivated Comments 04/22/2024 11:25 PM Care Teams Tank Insulator Rubber Relationship Specialty Start Date End Date Corey Herbert MD [address] [place] [address] PCP - General 04/22/24
--- OUTSIDE RECORDS SUMMARY | 2024-10-24 16:35 | XMS_ITS | Encounter Summary ---
Author Organization [facility] Address [address] [place] [address] Phone Care Team Providers Care Time Motion Analyst Name Role Phone Namrata Reardon MD Primary Care Provider [phone] Reason for Visit * Reason Comments Med Refill Encounter Details Date Type Department Care Team (Late st Contact Info) Description 10/21/2024 Refill [facility] [address] [place] [phone] Jaswant Cheung MD [address] [place] [address] [place] [address] Social History Tobacco Use Types [...] Visit [facility] [address] [place] [phone] Jaswant Cheung MD [address] [facility] [place] [phone] documented as of this encounter Visit Diagnoses Not on filedocumented in this encounter Care Teams Time Motion Analyst Relationship Specialty Start Date End Date Namrata Reardon MD PCP - General Internal Medicine 04/26/24 documented as of this encounter
--- OUTSIDE RECORDS SUMMARY | 2024-10-24 16:35 | XMS_ITS | Encounter Summary ---
Author Organization [facility] [place], Address [address] [place] [address] Phone Care Team Providers Care Ventilating Equipment Installer Name Role Phone Namrata Reardon MD Primary Care Provider [phone] Reason for Visit * Reason Comments Med Refill Encounter Details Date Type Department Care Team (Late Contact Info) Description 10/12/2023 Refill [facility] [address] [place] [phone] Jaswant Cheung MD [address] [facility] [place] [address] Social History Tobacco Use Types [...] Visit [facility] [place], [address] [place] [phone] Jaswant Cheung MD [address] [place] [phone] documented as of this encounter Visit Diagnoses Not on filedocumented in this encounter Care Teams Ventilating Equipment Installer Relationship Specialty Start Date End Date Namrata Reardon MD PCP - General Internal Medicine 04/26/24 documented as of this encounter
--- OUTSIDE RECORDS SUMMARY | 2024-10-24 16:35 | XMS_ITS | Encounter Summary ---
Author Organization [facility] [place], Address [address] [place] [address] Phone Care Team Providers Care Casting Supervisor Name Role Phone Namrata Reardon MD Primary Care Provider [phone] Encounter Details Date Type Department Care Team (Late st Contact Info) Description 09/15/2024 Documentation Only [facility] [address] [place] [phone] Hailey [place], [place] [address] [place] [phone] Social History Tobacco Use Types Packs/Day Years [...] Visit [facility] [address] [place] [phone] Jaswant Cheung MD [address] [place] [address] [place] [phone] documented as of this encounter Visit Diagnoses Not on filedocumented in this encounter Care Teams Casting Supervisor Relationship Specialty Start Date End Date Namrata Reardon MD PCP - General Internal Medicine 04/26/24 documented as of this encounter
--- OUTSIDE RECORDS SUMMARY | 2024-10-24 16:35 | XMS_ITS | Encounter Summary ---
Author Organization [facility] Address [address] [place] [address] Care Team Providers Care Preschool Paraprofessional Name Role Phone Namrata Reardon MD Primary Care Provider [phone] Reason for Visit * Reason Comments Follow-up Encounter Details Date Type Department Care Team (Latest Contact Info) Description 09/27/2024 10:40 AM EST Office Visit [facility] [address] [place] [address] Saida Platt, DUSTY [address] [place] [address] Primary hypertension (Primary Dx); Nonrheumatic aortic valve insufficiency; Paroxysmal atrial fibrillation (CMS/HCC); Pure hypercholesterolemia Social History Tobacco Use Types Packs/Day Years Used Date Smoking Tobacco: Never Smokeless Tobacco: Never Alcohol Use Standard Drinks/Week Comments Yes 0 (1 standard drink = 0.6 oz pur e alcohol) Sex and Gender Information Value Date Recorded Sex Assigned at Not on file Legal Sex Male 5:35 PM EST Gender Identity Not on file Sexual Orientation Not on file documented as of this encounter Last Filed Vital Signs Vital Sign Reading Time Taken Comments Blood Pressure 142/80 09/27/2024 10:34 AM EST Pulse 75 09/27/2024 10:34 AM EST Temperature - - Respiratory Rate - - Oxygen Saturation 99% 09/27/2024 10:34 AM EST Inhaled Oxygen Concentration - - Weight 75.8 kg (167 lb) 09/27/2024 10:34 AM EST Height 170.2 cm (5' 7 ) 09/27/2024 10:34 AM EST Body Mass Index 26.16 09/27/2024 10:34 AM EST documented in this encounter Progress Notes * Saida Platt NP - 09/27/2024 10:40 AM ESTAssociated Problem(s): HTN (hypertension) Patient's blood pressure somewhat robust in office, but overall well-controlled on review of his home blood pressures. He also sees Dr. Cheung from nephrology who follows his hypertension. For now, continue calcium channel phill, beta- phill, thiazide diuretic and ARB. * Saida Platt NP - 09/27/2024 10:40 AM ESTAssociated Problem(s): Aortic regurgitation The patient denies any symptoms referable to his AI. Continue periodic surveillance * Saida Platt NP - 09/27/2024 10:40 AM ESTAssociated Problem(s): Atrial fibrillation (CMS/HCC) The patient denies any symptoms of palpitations. He has been tolerating his Eliquis without bleeding issues. He has not had any falls. Continue rate control strategy with beta-phill. Continue anticoagulation with Eliquis. * Saida Platt NP - 09/27/2024 10:40 AM ESTAssociated Problem(s): Pure hypercholesterolemia Well-controlled lipid profile on current dose statin. Continue * Saida Platt NP - 09/27/2024 10:40 AM EST Primary Medical Record Consultant Dr. Romaine Conway is a 74 y.o. old male here for cardiac follow up of: 1) atrial fibrillation -Noted 04/2024 when he presented to the emergency room with left-sided facial droop and CTA head andneck showed a short segment occlusion of the right M2 posterior division with distal reconstitution -Rate control strategy with beta-phill -Anticoagulated with apixaban -Echocardiogram 04/2024 showed normal LVEF 53%, normal RV systolic function with moderate AI 2) hypertension 3) hyperlipidemia Past medical history also significant for CKD stage IIIa secondary to longstanding HTN He is doing well. He cares for his 15 month old granddaughter. When the weather permits, he takes her out for a walk. The patient denies chest pain with rest or exertion, shortness of breath with rest or exertion, palpitations, syncope/presyncope, edema, PND or orthopnea and sleeps on 1 pillow a night. He brings in a BP log revealing most blood pressures in the 130 range. He plans to see neurology 10/24. He has not missed any doses of his eliquis. He has not had any bleeding issues. ACTIVE MEDICATIONS: Outpatient Medications Marked as Taking for the 09/27/24 encounter (Office Visit) with Saida Platt NP Medication Sig Dispense Refill amLODIPine (NORVASC) 10 mg tablet TAKE 1 TABLET BY MOUTH EVERY DAY apixaban (Eliquis) 5 mg tablet Take 5 mg by mouth 2 times daily. atenoloL (TENORMIN) 25 mg tablet TAKE 1 TABLET BY MOUTH EVERY DAY 90 tablet 1 atorvastatin (LIPITOR) 10 mg tablet TAKE 1 TABLET BY MOUTH EVERY DAY hydroCHLOROthiazide 12.5 mg tablet Take 1 Tablet by mouth See Admin Instructions. Take M,W,F triamcinolone (KENALOG) 0.025 % cream APPLY TO AFFECTED AREA TWICE A DAY valsartan (DIOVAN) 320 mg tablet Take 1 Tablet by mouth daily. PAST MEDICAL HISTORY: Patient Active Problem List Diagnosis Date Noted Date Diagnosed Atrial fibrillation ([facility]) 06/01/2024 Last Assessment & Plan: Patient is new onset A-fib. Patient is currently taking Eliquis and atenolol. He is having no cardiac symptoms at this moment. Has been mostly sedentary since his discharge from the hospital, will slowly ramp up his activities of daily living which do include landscaping and housework. Will not change medication regimen at this time as he has no symptoms. Would like to get update on thyroid lab. He has been instructed to contact the office if he develops any symptoms. Right adrenal mass ([facility]) 09/12/[address] of the chest: small low-density right adrenal mass, most likely incidentaladenoma. 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 These values are around 120/80. Appear well-controlled on his current medication regimen. No changes to this at this time. Patient has been instructed he should continue to take blood pressure measurements and write them down at home. Pure hypercholesterolemia 01/01/2011 Last Assessment & Plan: Patient currently utilizing atorvastatin. Last LDL was 80, he states that he will be updating this with his PCP within the next 2 months. Has been educated to continue using a heart healthy diet. Resolved Problems No resolved problems to display. ALLERGIES: No Known Allergies SOCIAL HISTORY: Social History Tobacco Use Smoking status: Never Smokeless tobacco: Never Substance Use Topics Alcohol use: Yes PHYSICAL EXAM: Vitals: 09/27/24 1034 BP: (!) 142/80 BP Location: Left arm Patient Position: Sitting BP Cuff Size: Adult Pulse: 75 SpO2: 99% Weight: 75.8 kg (167 lb) Height: 1.702 m (67 ) GENERAL: WDWN 74 y.o. male resting comfortably on the exam chair in no acute distress HEENT: NCAT, negative JVD, carotid pulses +2 bilaterally, without bruit RESPIRATORY: Lungs clear, No wheezes/rales/rhonchi CARDIAC: S1S2, RRR no Murmur/heaves/rubs/gallops, no S3S4 EXTREMITIES: no edema PULSES: Radial and Pedal +2 bilaterally NEURO: A&Ox3 MS: Moving all extremities without focal findings. TESTING: Lab Results Component Value Date NA 138 09/15/2024 K 3.8 09/15/2024 CL 105 09/15/2024 CO2 27 09/15/2024 GLUCOSE 99 09/15/2024 BUN 34 (H) 09/15/2024 CREATININE 1.37 (H) 09/15/2024 CALCIUM 9.2 09/15/2024 PROT 7.8 08/24/2024 ALBUMIN 3.9 08/24/2024 BILITOT 0.8 08/24/2024 AST 27 08/24/2024 ALT 36 08/24/2024 ALKPHOS 75 08/24/2024 EGFR 54 (L) 09/15/2024 , Lab Results Component Value Date WBC 5.1 08/24/2024 HGB 14.1 08/24/2024 HCT 44.0 08/24/2024 MCV 93.8 08/24/2024 PLT 170 08/24/2024 , Lab Results Component Value Date CHOL 148 08/24/2024 CHOL 0 04/23/2024 Lab Results Component Value Date HDL 67 08/24/2024 HDL 0 04/23/2024 Lab Results Component Value Date LDLCALC 70 08/24/2024 Lab Results Component Value Date TRIG 56 08/24/2024 TRIG 0 04/23/2024 Lab Results Component Value Date CHOLHDL 2.2 08/24/2024 , and Lab Results Component Value Date TSH 2.02 08/24/2024 As per AHA guidelines and previously established plan of care by Dr. Gavin, we discussed the following today: ASSESSMENT/PLAN: Assessment & Plan Primary hypertension Patient's blood pressure somewhat robust in office, but overall well-controlled on review of his home blood pressures. He also sees Dr. Cheung from nephrology who follows his hypertension. For now, continue calcium channel phill, beta- phill, thiazide diuretic and ARB. Nonrheumatic aortic valve insufficiency The patient denies any symptoms referable to his AI. Continue periodic surveillance Paroxysmal atrial fibrillation (CMS/HCC) The patient denies any symptoms of palpitations. He has been tolerating his Eliquis without bleeding issues. He has not had any falls. Continue rate control strategy with beta-phill. Continue anticoagulation with Eliquis. Pure hypercholesterolemia Well-controlled lipid profile on current dose statin. Continue No orders of the defined types were placed in this encounter. Thank you for allowing us to participate in the care of this patient. The patient will follow up in6 months, sooner PRN. This note is completed with voice recognition software. Please pardon any grammatical or syntax errors. I personally spent a total of 30 minutes, including both ghhz-ay-mhxf and kdk-xouf-lu-face time on the date of the encounter, addressing the above diagnoses. Activities performed in this time includechart review, obtaining / reviewing history, performing a medically necessary evaluation, documentation and counseling including medical decision making of No diagnosis found.. Cosigned by Scotty Acevedo MD at 09/27/2024 2:54 PM EST documented in this encounter Plan of Treatment Upcoming Encounters Date Type Department Care Team (Late st Contact Info) Description 11/17/2024 1:15 PM EST Office Visit Adult Medicine [address] [address] Namrata Reardon MD [address] [place] [id number] documented as of this encounter Visit Diagnoses Diagnosis Primary hypertension- Primary Unspecified essential hypertension Nonrheumatic aortic valve insufficiency Paroxysmal atrial fibrillation (CMS/HCC) Atrial fibrillation Pure hypercholesterolemia documented in this encounter Care Teams Preschool Paraprofessional Relationship Specialty Start Date End Date Namrata Reardon MD [address] [place] [phone] PCP - General Internal Medicine 07/18/24 documented as of this encounter
--- OUTSIDE RECORDS SUMMARY | 2024-10-24 16:35 | XMS_ITS ---
Author Name [facility] Organization Unknown Results Test Name/Text Value Interpretation Date Range Source LMWH PPP Building Admin-aCnc 0.49IU/mL Normal [id number] [facility] POC Glucose 112mg/dL Above high normal 465975493843 65 - 99 [facility] POC Glucose 113mg/dL Above high normal 831691916192 65 - 99 [facility] Anticoagulant IV HEPARIN, UNFRACTIONATED Normal [id number] [facility] POC Glucose 164mg/dL Above high normal [id number] 65 - 99 [facility] LMWH PPP Building Admin-aCnc 0.48IU/mL Normal [id number] [facility] POC Glucose 134mg/dL Above high normal [id number] 65 - 99 H[facility]CT LDLc SerPl Calc-mCnc 68mg/dL Normal [id number] - 130 H[facility]CT Trigl SerPl-mCnc 50mg/dL Normal [id number] - 150 H[facility]CT HDLc SerPl-mCnc 61mg/dL Normal [id number] 39 - H HCCT Cholest SerPl-mCnc 139mg/dL Normal [id number] - 200 H[facility]CT HDLc SerPl 2.3Ratio Normal [id number] 0 - 5 [facility]CT Calcium SerPl-mCnc 9mg/dL Normal [id number] 8.7 - 10 .5 H[facility]CT BUN SerPl-mCnc 17mg/dL Normal [id number] 8 - 21 HH CCT Creat SerPl-mCnc 1mg/dL Normal [id number] 0.5 - 1.3 H[facility]CT GFR/BSA.pred SerPlBld [id number] 79 Normal [id number] 59 - HHCCT Chloride SerPl-sCnc 101mmol/L Normal [id number] 98 - 107 H[facility]CT BUN/Creat SerPl 17Ratio Normal [id number] 10 - 25 H HCCT CO2 SerPl-sCnc 23mmol/L Normal [id number] 22 - 33 HH CCT Anion Gap Bld-sCnc 14 Normal [id number] 7 - 17 H[facility]CT Potassium SerPl-sCnc 3.5mmol/L Normal [id number] 3.4 - 5.3 H[facility]CT Glucose SerPl-mCnc 97mg/dL Normal [id number] 65 - 99 H[facility]CT Sodium SerPl-sCnc 138mmol/L Normal [id number] 136 - 145 H[facility]CT Magnesium SerPl-mCnc 1.9mg/dL Normal [id number] 1.6 - 2.7 CCT Opiates Ur Ql Scn>300 ng/mL Normal [id number] - [facility] Buprenorphine Ur Ql Normal [id number] - [facility] fentaNYL+Norfentan yl Ur Ql Scn Normal [id number] - [facility] Oxycodone Ur Ql Scn Normal [id number] - [facility] Benzodiaz Ur Ql Scn>200 ng/mL Normal [id number] - [facility] Amphetamines Ur Ql Normal [id number] - [facility] Barbiturates Ur Ql Scn>200 ng/mL Normal [id number] - [facility] Methadone Ur Ql Scn>300 ng/mL Normal [id number] - [facility] Cannabinoids Ur Ql Scn>50 ng/mL Normal [id number] - [facility] PCP Ur Ql Scn>25 ng/mL Normal [id number] - [facility] Ethanol Ur-mCnc Normal [id number] - H [facility] BZE Ur Ql Normal [id number] - [facility] Tricyclics Ur Ql Scn Normal [id number] - [facility] Anticoagulant IV HEPARIN, UNFRACTIONATED Normal [id number] [facility] Hgb A1c MFr Bld 5.6% Normal [id number] - 5.7 H HCCT Est. average glucose Bld gHb Est-mCnc 114mg/dL Normal [id number] [facility] RBC num Bld Auto 4.47Mil/uL Below low normal [id number] 4. 5 - 6.2 H[facility]CT RDW RBC Auto-Rto 14.4% Normal [id number] 11.5 - 14.5 H[facility]CT PMV Bld Auto 11.3fL Normal [id number] 7.5 - 12.[address] MCH RBC Qn Auto 30pg Normal [id number] 27 - 31 H [facility]CT WBC num Bld Auto 7Thou/uL Normal [id number] 4 - 11 [facility] Platelet num Bld Auto 180Thou/uL Normal [id number] 150 - 450 H[facility]CT MCHC RBC Auto-mCnc 32.2g/dL Normal [id number] 30 - 36 H[facility]CT Hct VFr Bld Auto 41.6% Normal [id number] 39 - 54 H[facility]CT MCV RBC Auto 93fL Normal [id number] 80 - 100 HHCC T Hgb Bld-mCnc 13.4g/dL Normal [id number] 13 - 17.7 HHCC T LMWH PPP Building Admin-aCnc 0.35IU/mL Normal [id number] H[facility]CT Anticoagulant HEPARIN, LOW MOLECULAR WEIGHT Normal [id number] H[facility]CT POC Glucose 101mg/dL Above high normal [id number] 65 - 99 H[facility]CT POC Glucose 103mg/dL Above high normal [id number] 65 - 99 H[facility]CT AST SerPl-cCnc 27U/L Normal [id number] 10 - 55 HH CCT ALT SerPl-cCnc 21U/L Normal [id number] 10 - 55 HH CCT Creat SerPl-mCnc 1.1mg/dL Normal [id number] 0.5 - 1.3 H[facility]CT Globulin Ser Calc-mCnc 3.7g/dL Normal [id number] 1.5 - 3.9 H[facility]CT CO2 SerPl-sCnc 23mmol/L Normal [id number] 22 - 33 HH CCT Albumin/Glob SerPl 1.1Ratio Normal [id number] 1 - 3 [facility]CT Anion Gap Bld-sCnc 13 Normal [id number] 7 - 17 H[facility]CT Potassium SerPl-sCnc 3.5mmol/L Normal [id number] 3.4 - 5.3 HHCCT Bilirub SerPl-mCnc 0.6mg/dL Normal [id number] 0.2 - 1 H[facility]CT Calcium SerPl-mCnc 9mg/dL Normal [id number] 8.7 - 10 .5 H[facility]CT BUN SerPl-mCnc 21mg/dL Normal [id number] 8 - 21 HH CCT ALP SerPl-cCnc 79U/L Normal [id number] 45 - 128 HH CCT GFR/BSA.pred SerPlBld [id number]-[id number] 70 Normal [id number] 59 - HHCCT Chloride SerPl-sCnc 103mmol/L Normal [id number] 98 - 107 H[facility]CT BUN/Creat SerPl 19Ratio Normal [id number] 10 - 25 H HCCT Albumin SerPl-mCnc 4g/dL Normal [id number] 3.4 - 4. 8 HHCCT Prot SerPl-mCnc 7.7g/dL Normal [id number] 6.3 - 8.3 H HCCT Glucose SerPl-mCnc 98mg/dL Normal [id number] 65 - 99 H[facility]CT Sodium SerPl-sCnc 139mmol/L Normal [id number] 136 - 145 H[facility]CT Neutrophils num Bld Auto 4.2Thou/uL Normal [id number] 2 - 7.5 H[facility]CT Monocytes num Bld Auto 0.77Thou/uL Normal [id number] 0.2 - 1.5 HHCCT Eosinophil num Bld Auto 0.04Thou/uL Normal [id number] 0 - 0.7 HHCCT WBC num Bld Auto 7.3Thou/uL Normal [id number] 4 - 11 HHCCT MCHC RBC Auto-mCnc 32.5g/dL Normal [id number] 30 - 36 H[facility]CT Monocytes/leuk NFr Bld Auto 10.5% Normal [id number] HHCCT Hct VFr Bld Auto 42.4% Normal [id number] 39 - 54 H[facility]CT RBC num Bld Auto 4.59Mil/uL Normal [id number] 4.5 - 6.2 HHCCT RDW RBC Auto-Rto 14.7% Above high normal [id number] 11.5 - 14.5 HHCCT PMV Bld Auto 12fL Normal [id number] 7.5 - 12.[address] Eosinophil/leuk NFr Bld Auto 0.5% Normal [id number] HHCCT MCH RBC Qn Auto 30.1pg Normal [id number] 27 - 31 H HCCT Basophils/leuk NFr Bld Auto 0.5% Normal [id number] H[facility]CT Basophils num Bld Auto 0.04Thou/uL Normal [id number] 0 - 0.2 [facility] Platelet num Bld Auto 181Thou/uL Normal [id number] 150 - 450 H[facility]CT Neutrophils/leuk NFr Bld Auto 57.3% Normal [id number] HHCCT MCV RBC Auto 92fL Normal [id number] 80 - 100 HHCC T Lymphocytes/leuk NFr Bld Auto 30.9% Normal [id number] H[facility]CT Lymphocytes num Bld Auto 2.27Thou/uL Normal [id number] 1.5 - 4.5 HHCCT Imm Granulocytes/leuk NFr Bld Auto 0.3% Normal [id number] HHCCT Hgb Bld-mCnc 13.8g/dL Normal [id number] 13 - 17.7 HHCC T Imm Granulocytes num Bld Auto 0.02Thou/uL Normal [id number] 0 - 0.1 HHCCT INR PPP 1.2 Normal [id number] HHCCT Prothrombin time 13.8seconds Above high normal [id number] 10 - 13.5 HHCCT POC Glucose 94mg/dL Normal [id number] 65 - 99 HHCCT Anticoagulant OTHER AGENT OR UNKNOWN Normal [id number] HHCCT
--- OUTSIDE RECORDS SUMMARY | 2024-10-24 16:35 | XMS_ITS | Encounter Summary ---
Author Organization [facility], Address [address] [place] [address] Phone Care Team Providers Care Efficiency Expert Name Role Phone Namrata Reardon MD Primary Care Provider [phone] Encounter Details Date Type Department Care Team (Late st Contact Info) Description 12/22/2023 Documentation Only [facility] [address] [place] [phone] [place], [place] [address] [place] [phone] Social History Tobacco Use Types Packs/Day Years [...] Visit [facility] [address] [place] [phone] Jaswant Cheung MD [address] [place] [address] [place] [phone] documented as of this encounter Visit Diagnoses Not on filedocumented in this encounter Care Teams Efficiency Expert Relationship Specialty Start Date End Date Namrata Reardon MD PCP - General Internal Medicine 04/26/24 documented as of this encounter
--- OUTSIDE RECORDS SUMMARY | 2024-10-24 16:35 | XMS_ITS | Clinical Summary ---
Author Organization [address] [place] [address] [place] [phone] Phone Care Team Providers Care Plasterer Rough Name Role Phone Namrata Reardon MD Primary Care Provider Allergies No known active allergies Medications atorvastatin (LIPITOR) 10 mg tablet TAKE 1 TABLET BY MOUTH EVERY DAY 06/06/2024 Active apixaban (Eliquis) 5 mg tablet Take 5 mg by mouth 2 times daily. 04/24/2024 Active valsartan (DIOVAN) 320 mg tablet Take 1 Tablet by mouth daily. Active hydroCHLOROthia zide 12.5 mg tablet Take 1 Tablet by mouth See Admin Instructions. Take M,W,F 05/20/2024 Active triamcinolone (KENALOG) 0.025 % cream APPLY TO AFFECTED AREA TWICE A DAY 05/20/2024 Active amLODIPine (NORVASC) 10 mg tablet TAKE 1 TABLET BY MOUTH EVERY DAY 03/13/2023 Active atenoloL (TENORMIN) 25 mg tablet TAKE 1 TABLET BY MOUTH EVERY DAY 90 tablet 1 09/21/2024 Active Active Problems Problem Noted Date Diagnosed Date Atrial fibrillation 06/01/2024 Overview (09/27/2024): Anticoagulated with apixaban Rate control strategy with atenolol Assessment & Plan (09/27/2024 12:09 PM EST): The patient denies any symptoms of palpitations. He has been tolerating his Eliquis without bleeding issues. He has not had any falls. Continue rate control strategy with beta-phill. Continue anticoagulation with Eliquis. Right adrenal mass 09/12/2020 Overview (07/28/2024): Accidental finding on CT of the chest: small low-density right adrenal mass, most likely incidental adenoma. 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 He also sees Dr. Cheung from nephrology who follows his hypertension. For now, continue calcium channel phill, beta- phill, thiazide diuretic and ARB. Pure hypercholesterolemia 01/01/2011 Assessment & Plan (09/27/2024 12:09 PM EST): Well-controlled lipid profile on current dose statin. Continue Encounters Date Type Department Care Team Description 09/27/2024 10:40 AM EST Office Visit [facility] [address] [facility] [address] [place] [address] Saida Platt NP Primary hypertension (Primary Dx); Nonrheumatic aortic valve insufficiency; Paroxysmal atrial fibrillation (CMS/HCC); Pure hypercholesterolemia 08/05/2024 Telephone Adult Medicine [address] [phone] Karla Hamilton MA Referral from Last 3 Months Immunizations Name Administration Dates Next Due Tdap Tetanus diptheria acell ular pertussis (Boostrix; Adacel) 7yo and older 04/20/2013 Surgical History Surgery Date Site/Laterality Comments COLONOSCOPY 12/09/10 PROCEDURE: HISTORICAL COLONOSCOPY; COMMENT: hemorrhoids; repeat in ten years Medical History Medical History Date Comments HTN (hypertension) 01/01/2011 DX:HTN (hyper tension) Pure hypercholesterolemia 01/01/2011 DX:Pur e hypercholesterolemia CKD (chronic kidney disease) stage 3, GFR 30-59 ml/min ([facility]/HCC) 01/01/2011 DX:CKD (chronic kidney dise ase) stage 3, GFR 30-59 ml/min ([facility]) Aortic regurgitation 10/25/2013 DX:Aortic r egurgitation Family History Medical History Relation Name Comments Hypertension Father Hypertension Son Shayan Relation Name Status Comments Father Son Shayan Alive Social History Tobacco Use Types Packs/Day Years Used Date Smoking Tobacco: Never Smokeless Tobacco: Never Alcohol Use Standard Drinks/Week Comments Yes 0 (1 standard drink = 0.6 oz pur e alcohol) Sex and Gender Information Value Date Recorded Sex Assigned at Not on file Legal Sex Male 5:35 PM EST Gender Identity Not on file Sexual Orientation Not on file Obstetrics History Last Filed Vital Signs Vital Sign Reading [...] Mass Index 26.16 09/27/2024 10:34 AM EST Plan of Treatment Upcoming Encounters Date Type Department Care Team (Late st Contact Info) Description 11/17/2024 1:15 PM EST Office Visit Adult Medicine [address] [phone] Namrata Reardon MD [address] [place] [address] [phone] Health Maintenance Due Date Last Done Comments COVID-19 Vaccine (#1) 1955 Pneumococcal Vaccine: 50+ Years (1 of 2 - PCV) 1956 Diabetes: Annual Foot Exam 1960 Diabetes: Annual Retina Eye Exam 1960 Zoster Vaccines (1 of 2) 2000 RSV Immunization Patients 60+ Years Old (1 - Risk 60-74 years 1-dose series) 2010 Colorectal Cancer Screening: Colonoscopy 08/16/2022 12/09/2010 Depression Screening 08/16/2022 08/27/2018 Falls Risk Assessment 08/16/2022 08/27/2018 Medicare Annual Wellness Visit 08/16/2022 Social Influencers of Health Screening 08/16/2022 DTaP,Tdap,and Td Vaccines (2 - Td or Tdap) 04/20/2023 04/20/2013 Influenza Vaccine (#1) 2024 Diabetes: Annual Urine Albumin-Creatinine Ratio (uACR) 08/24/2024 Diabetes: Blood Sugar Control Test (HGBA1C) 02/22/2025 08/24/2024, 04/23/2024, 04/23/2024 Diabetes: Annual GFR (Glomerular Filtration Rate) 09/15/2025 09/15/2024, 08/24/2024, 04/23/2024, Additional history exists Hypertension/CHF/CAD Annual BMP Blood Test 09/15/2025 09/15/2024, 08/24/2024, 04/23/2024, Additional history exists Cholesterol Screening (Lipid Panel) 08/24/2029 08/24/2024, 04/23/2024, 04/23/2024 Hepatitis C Screening Completed 10/18/2013 HIB Vaccines Aged Out No longer eligi ble based on patient's age to complete this topic HPV Vaccines Aged Out No longer eligi ble based on patient's age to complete this topic Hepatitis A Vaccines Aged Out No long er eligible based on patient's age to complete this topic Hepatitis B Vaccines Aged Out No long er eligible based on patient's age to complete this topic IPV Vaccines Aged Out No longer eligi ble based on patient's age to complete this topic MMR Vaccines Aged Out No longer eligi ble based on patient's age to complete this topic Meningococcal ACWY Vaccine Aged Out N o longer eligible based on patient's age to complete this topic RSV Immunization Patients Under 20 months Aged Out No longer eligible based on patient's age to complete this topic Varicella Vaccines Aged Out No longer eligible based on patient's age to complete this topic Procedures Procedure Name Priority Date/Time Associated Diagnosis Comments BASIC METABOLIC PANEL Routine 09/15/2024 8:39 AM EST Stage 3 chronic kidney disease, unspecified whether stage 3a or 3b CKD (CMS/HCC) CBC WITH AUTO DIFFERENTIAL Routine 08/24/2024 7:46 AM EST Atrial fibrillation (CMS/HCC) Impending cerebrovascular accident (CMS/HCC) THYROID STIMULATING HORMONE WITH REFLEX TO FREE T4 AND FREE T3 Routine 08/24/2024 7:46 AM EST Atrial fibrillation (CMS/HCC) CBC AND DIFFERENTIAL Routine 08/24/2024 7:46 AM EST Atrial fibrillation (CMS/HCC) Impending cerebrovascular accident (CMS/HCC) HEMOGLOBIN A1C Routine 08/24/2024 7:46 AM EST Atrial fibrillation (CMS/HCC) Impending cerebrovascular accident (CMS/HCC) 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) LIPID PANEL WITH REFLEX TO DIRECT LDL Routine 08/24/2024 7:46 AM EST Atrial fibrillation (CMS/HCC) Impending cerebrovascular accident (CMS/HCC) COMPREHENSIVE METABOLIC PANEL Routine 08/24/2024 7:46 AM EST Atrial fibrillation (CMS/HCC) Impending cerebrovascular accident (CMS/HCC) DEPRESSION SCREENING Routine 08/27/2018 FALLS RISK ASSESSMENT Routine 08/27/2018 HEPATITIS C SCREENING Routine 10/18/2013 COLONOSCOPY Routine 12/09/2010 from Last 3 Months or Most Recently Relevant to Health Maintenance Results * (ABNORMAL) Basic metabolic panel (09/15/2024 8:39 AM EST) Sodium 138 133 - 145 mmol/L LAB CHEMISTRY METHOD 09/15/2024 1:26 PM [facility] Potassium 3.8 3.5 - 5.5 mmol/L LAB CHEMISTRY METHOD 09/15/2024 1:26 PM [facility] Chloride 105 96 - 110 mmol/L LAB CHEMISTRY METHOD 09/15/2024 1:26 PM [facility] CO2 27 21 - 32 mmol/L LAB CHEMISTRY METHOD 09/15/2024 1:26 PM [facility] Anion Gap 6 3 - 11 LAB CHEMISTRY METHOD 09/15/2024 1:26 PM [facility] Glucose 99 70 - 100 mg/dL LAB CHEMISTRY METHOD 09/15/2024 1:26 PM [facility] BUN 34(H) 5 - 25 mg/dL LAB CHEMISTRY METHOD 09/15/2024 1:26 PM [facility] Creatinine 1.37(H) 0.70 - 1.30 mg/dL LAB CHEMISTRY METHOD 09/15/2024 1:26 PM [facility] eGFR 54(L) >=60 mL/min/1. 73m2 LAB CHEMISTRY METHOD 09/15/2024 1:26 PM [facility] Comment:Calculation based on the??Chronic Kidney Disease Epidemiology Collaboration (CKD-EPI) equation refit??without adjustment for race. BUN/Creatinine Ratio 24.8 LAB CHEMISTRY METHOD 09/15/2024 1:26 PM [facility] Calcium 9.2 8.5 - 10.5 mg/dL LAB CHEMISTRY METHOD 09/15/2024 1:26 PM [facility] Blood Venous blood specimen / Unknown Venipuncture / Unknown 09/15/2024 8:39 AM EST 09/15/2024 8:39 AM EST us Namrata Reardon MD LAB BLOOD ORDERABLES Final Resul t [facility] [address] [place] [address], [place] [phone] * Thyroid stimulating hormone with reflex to free t4 and free t3 (08/24/2024 7:46 AM EST) [facility] TSH 2.02 0.40 - 4.00 mcIU/mL LAB CHEMISTRY METHOD 08/24/2024 10:13 AM EST [facility] Blood Venous blood specimen / Unknown Venipuncture / Unknown 08/24/2024 7:46 AM EST 08/24/2024 7:46 AM EST us Messi Molina NP LAB BLOOD ORDERABLES Final Resul t [facility] [address] [place] [address], [place] [phone] * Lipid panel with reflex to direct LDL (08/24/2024 7:46 AM EST) [facility] Cholesterol 148 0 - 200 mg/dL LAB CHEMISTRY METHOD 08/24/2024 10:22 AM [facility] Triglycerides 56 0 - 150 mg/dL LAB CHEMISTRY METHOD 08/24/2024 10:22 AM [facility] HDL 67 >=40 mg/dL LAB CHEMISTRY METHOD 08/24/2024 10:22 AM [facility] LDL Calculated 70 0 - 100 mg/dL LAB CHEMISTRY METHOD 08/24/2024 10:22 AM [facility] VLDL Cholesterol Blake 11.2 mg/dL LAB CHEMISTRY METHOD 08/24/2024 10:22 AM [facility] Non HDL Chol. (LDL+VLDL) 81 <145 mg/dL LAB CHEMISTRY METHOD 08/24/2024 10:22 AM [facility] Chol/HDL Ratio 2.2 0.0 - 4.4 LAB CHEMISTRY METHOD 08/24/2024 10:22 AM [facility] Blood Venous blood specimen / Unknown Venipuncture / Unknown 08/24/2024 7:46 AM EST 08/24/2024 7:46 AM EST us Namrata Reardon MD LAB BLOOD ORDERABLES Final Resul t [facility] [address] [place] [address], [place] [phone] * (ABNORMAL) CBC auto differential (08/24/2024 7:46 AM EST) Pathologist [facility] WBC 5.1 4.8 - 10.8 K/mcL LAB HEMETOLOGY METHOD 08/24/2024 10:04 AM [facility] RBC 4.70 4.50 - 5.50 M/mcL LAB HEMETOLOGY METHOD 08/24/2024 10:04 AM [facility] Hemoglobin 14.1 13.5 - 17.5 g/dL LAB HEMETOLOGY METHOD 08/24/2024 10:04 AM [facility] Hematocrit 44.0 42.0 - 54.0 % LAB HEMETOLOGY METHOD 08/24/2024 10:04 AM [facility] MCV 93.8 79.0 - 98.0 FL LAB HEMETOLOGY METHOD 08/24/2024 10:04 AM [facility] MCH 30.1 27.0 - 32.0 pcg LAB HEMETOLOGY METHOD 08/24/2024 10:04 AM [facility] MCHC 32.0 32.0 - 37.0 g/dL LAB HEMETOLOGY METHOD 08/24/2024 10:04 AM [facility] RDW 14.8 11.0 - 15.0 % LAB HEMETOLOGY METHOD 08/24/2024 10:04 AM [facility] Platelets 170 130 - 400 K/mcL LAB HEMETOLOGY METHOD 08/24/2024 10:04 AM [facility] MPV 12.1(H) 7.0 - 11.0 FL LAB HEMETOLOGY METHOD 08/24/2024 10:04 AM [facility] NRBC 0.0 <1.0 % LAB HEMETOLOGY METHOD 08/24/2024 10:04 AM [facility] NRBC Absolute 0.00 <0.10 K/mcL LAB HEMETOLOGY METHOD 08/24/2024 10:04 AM [facility] Neutrophils Relative 53.9 % LAB HEMETOLOGY METHOD 08/24/2024 10:04 AM [facility] Lymphocytes Relative 33.9 % LAB HEMETOLOGY METHOD 08/24/2024 10:04 AM [facility] Monocytes Relative 9.6 % LAB HEMETOLOGY METHOD 08/24/2024 10:04 AM [facility] Eosinophils Relative 1.4 % LAB HEMETOLOGY METHOD 08/24/2024 10:04 AM [facility] Basophils Relative 0.8 % LAB HEMETOLOGY METHOD 08/24/2024 10:04 AM [facility] Immature Granulocytes Relative 0.4 % LAB HEMETOLOGY METHOD 08/24/2024 10:04 AM [facility] Neutrophils Absolute 2.75 1.50 - 7.00 K/mcL LAB HEMETOLOGY METHOD 08/24/2024 10:04 AM [facility] Lymphocytes Absolute 1.73 1.00 - 5.00 K/mcL LAB HEMETOLOGY METHOD 08/24/2024 10:04 AM [facility] Monocytes Absolute 0.49 0.20 - 1.00 K/mcL LAB HEMETOLOGY METHOD 08/24/2024 10:04 AM [facility] Eosinophils Absolute 0.07 0.00 - 0.50 K/mcL LAB HEMETOLOGY METHOD 08/24/2024 10:04 AM [facility] Basophils Absolute 0.04 0.00 - 0.20 K/[facility] LAB HEMETOLOGY METHOD 08/24/2024 10:04 AM EST [facility] Immature Granulocytes Absolute 0.02 0.00 - 0.03 K/[facility] LAB HEMETOLOGY METHOD 08/24/2024 10:04 AM EST [facility] Blood Venous blood specimen / Unknown Venipuncture / Unknown 08/24/2024 7:46 AM EST 08/24/2024 7:46 AM EST us Namrata Reardon MD LAB BLOOD ORDERABLES Final Resul t [facility] [address] [place] [address], [place] [phone] * Hemoglobin A1c (08/24/2024 7:46 AM EST) Hemoglobin A1C 5.5 <6.5 % LAB CHEMISTRY METHOD 08/24/2024 11:26 AM EST [facility] Mean Bld Glu Estim. 111 mg/dL LAB CHEMISTRY METHOD 08/24/2024 11:26 AM EST [facility] Blood Venous blood specimen / Unknown Venipuncture / Unknown 08/24/2024 7:46 AM EST 08/24/2024 7:46 AM EST us Namrata Reardon MD LAB BLOOD ORDERABLES Final Resul t [facility] [address] [place] [address], [place] [phone] * (ABNORMAL) Comprehensive metabolic panel (08/24/2024 7:46 AM EST) Sodium 139 133 - 145 mmol/L LAB CHEMISTRY METHOD 08/24/2024 10:22 AM EST [facility] Potassium 4.0 3.5 - 5.5 mmol/L LAB CHEMISTRY METHOD 08/24/2024 10:22 AM [facility] Chloride 105 96 - 110 mmol/L LAB CHEMISTRY METHOD 08/24/2024 10:22 AM [facility] CO2 27 21 - 32 mmol/L LAB CHEMISTRY METHOD 08/24/2024 10:22 AM [facility] Anion Gap 7 3 - 11 LAB CHEMISTRY METHOD 08/24/2024 10:22 AM [facility] Glucose 102(H) 70 - 100 mg/dL LAB CHEMISTRY METHOD 08/24/2024 10:22 AM [facility] BUN 25 5 - 25 mg/dL LAB CHEMISTRY METHOD 08/24/2024 10:22 AM [facility] Creatinine 1.35(H) 0.70 - 1.30 mg/dL LAB CHEMISTRY METHOD 08/24/2024 10:22 AM [facility] eGFR 55(L) >=60 mL/min/1. 73m2 LAB CHEMISTRY METHOD 08/24/2024 10:22 AM [facility] Comment:Calculation based on the??Chronic Kidney Disease Epidemiology Collaboration (CKD-EPI) equation refit??without adjustment for race. BUN/Creatinine Ratio 18.5 LAB CHEMISTRY METHOD 08/24/2024 10:22 AM [facility] Calcium 9.7 8.5 - 10.5 mg/dL LAB CHEMISTRY METHOD 08/24/2024 10:22 AM [facility] AST (SGOT) 27 10 - 42 unit/L LAB CHEMISTRY METHOD 08/24/2024 10:22 AM [facility] ALT (SGPT) 36 10 - 60 unit/L LAB CHEMISTRY METHOD 08/24/2024 10:22 AM [facility] Alkaline Phosphatase 75 42 - 121 unit/L LAB CHEMISTRY METHOD 08/24/2024 10:22 AM [facility] Total Protein 7.8 6.0 - 8.0 g/dL LAB CHEMISTRY METHOD 08/24/2024 10:22 AM EST [facility] Albumin 3.9 3.2 - 5.0 g/dL LAB CHEMISTRY METHOD 08/24/2024 10:22 AM EST [facility] Total Bilirubin 0.8 0.0 - 1.4 mg/dL LAB CHEMISTRY METHOD 08/24/2024 10:22 AM EST [facility] Blood Venous blood specimen / Unknown Venipuncture / Unknown 08/24/2024 7:46 AM EST 08/24/2024 7:46 AM EST Namrata Reardon MD LAB BLOOD ORDERABLES Final Resul t [facility] [address] [place] [address], [place] [phone] * Falls Risk Assessment (08/27/2018) [facility] Falls Risk Assessment Abstracted Historical Provider HEALTH MAINTENANCE Final Result * Depression Screening (08/27/2018) Pathologist [facility] Depression Screening Abstracted Historical Provider HEALTH MAINTENANCE Final Result * Hepatitis C Screening (10/18/2013) Pathologist [facility] Hepatitis C Screening Abstracted Historical Provider HEALTH MAINTENANCE Final Result * Colonoscopy (12/09/2010) Pathologist [facility] Colonoscopy No interpretation , abstracted Anatomical Region Laterality Modality Other Historical Provider HEALTH MAINTENANCE Final Result from Last 3 Months or Most Recently Relevant to Health Maintenance Insurance MEDICARE [facility] Care Teams Plasterer Rough Relationship Specialty Start Date End Date Namrata Reardon MD [address] [place] [phone] PCP - General Internal Medicine 07/18/24
[2024-10-24 19:57] LABS: Erythrocyte Sedimentation Rate 8 MM/HR (0-15)
[2024-10-25 18:13] LABS: Lyme Abs Screen <0.90 index
== END 2024-10-24 15:58 | disposition home or self-care (01) ==
LOC: HO.LAB 15:57
PROVIDERS: PCP Internal Medicine; Visit Provider Psychiatry & Neurology Neurology
DX: I63.50 Cerebral infarction due to unspecified occlusion or stenosis of unspecified cerebral artery (principal)
CPT/HCPCS: 36415; 85652; 86617; 86618

== ENCOUNTER 2025-07-31 00:03 | Emergency (ER) | payer MEDICARE, OTHER, SELFPAY ==
--- OUTSIDE RECORDS SUMMARY | 2025-07-28 08:46 | XMS_ITS | Encounter Summary ---
Author Organization [facility] Address [address] [place] [address] Care Team Providers Care Cnc Service Technician Name Role Phone Namrata Reardon MD Primary Care Provider [phone] Reason for Referral * Hospital - Outpatient (Routine) - Authorized Specialty Diagnoses / Procedures Referred By Virgilio ugalde Referred To Contact Diagnoses Colon cancer screening Procedures COLONOSCOPY Anesthesia - MAC; [facility] ENDOSCOPY Estrada Qiu MD [address] [facility] [address] [place] [address] Phone: tel: fax: [facility] Referral ID Status Reason Start Date Expiration Date V isits Requested Visits Authorized [id number] Authorized 04/25/2025 04/25/2026 1 1 Reason for Visit * Auth/Cert (Routine) Specialty Diagnoses / Procedures Referred By Virgilio ugalde Referred To Contact Diagnoses Encounter for screening for malignant neoplasm of colon Procedures COLONOSCOPY [facility] [place] [address] [facility] Endoscopy [address] [place] [address] Phone: tel: Referral ID Status Reason Start Date Expiration Date Visits Re quested Visits Authorized [id number] 1 1 Encounter Details Date Type Department Care Team (Latest Contact Info) Description 07/28/2025 8:46 AM EST Hospital Encounter [facility] Endoscopy [address] [place] [address] Estrada Qiu MD 299 [facility] [address] [place] [address] Shayan Chavez CRNA [address] [address] Erickson Villa MD [address] [place] [address] Colon cancer screening Social History Tobacco Use Types Packs/Day Years Used Date Smoking Tobacco: Never Passive Smoke Exposure: Never Smokeless Tobacco: Never Alcohol Use Standard Drinks/Week Comments Yes 0 (1 standard drink = 0.6 oz pur e alcohol) Housing Instability Answer Date Recorde d Are you worried that in the next 2 months you may not have stable housing? No 04/14/2025 Food Access & Nutrition Answer Date Rec orded Do you have access to a vari ety of food including fruits and vegetables? Yes 04/14/2025 Access to Healthcare Answer Date Record ed Within the last 3 months, coy maurer many times did you visit the emergency department for your medical care? 0 11/25/2024 Health Literacy Answer Date Recorded How often do you need to hav e someone help you when you read instructions, pamphlets, or other written material from your doctor or pharmacy? Never 04/14/2025 Caregiver: How often do you need to have someone help you when you read instructions, pamphlets, or other written material from your doctor or pharmacy? Not on file 04/14/2025 Financial Risk Answer Date Recorded How hard is it for you to pa y for the very basics like food, housing, medical care, and air conditioning / heating? Not very hard 04/14/2025 Transportation Answer Date Recorded Has the lack of transportati on kept you from meetings, work, or from getting things needed for daily living? No Has the lack of transportati on kept you from medical appointments or from getting medications? No 04/14/2025 Social Isolation Answer Date Recorded How often do you feel lonely or isolated from th ose around you? Never 04/14/2025 Food Risk Answer Date Recorded Within the past 12 months we worried whether our food would run out before we got money to buy more. Never true 04/14/2025 Within the past 12 months th e food we bought just didn't last and we didn't have money to get more. Never true 04/14/2025 Dependent Care Answer Date Recorded Do you need help finding or paying for care for your loved ones. For example, child watch attendant or elderly care for an older adult? No 04/14/2025 Education Answer Date Recorded Do you think completing more education or training, like finishing a GED, going to college, or learning a trade, would be helpful for you? No 04/14/2025 Employment and Income Answer Date Recor ded During the last four weeks, have you been actively looking for work? No 04/14/2025 Living Situation Answer Date Recorded What is your living situation? Unrecognized valu e 04/14/2025 Interpersonal Safety Answer Date Record ed Physical Abuse Unrecognized value 07/28/2025 Verbal Abuse Unrecognized value 07/28/2025 Sex and Gender Information Value Date Recorded Sex Assigned at Not on file Legal Sex Male 5:35 PM EST Gender Identity Not on file Sexual Orientation Not on file documented as of this encounter Last Filed Vital Signs Vital Sign Reading Time Taken Comments Blood Pressure 108/81 07/28/2025 10:31 AM EST Pulse 81 07/28/2025 10:31 AM EST Temperature 36.1 C (97 F) 07/28/2025 9:26 AM EST Respiratory Rate 16 07/28/2025 10:31 AM EST Oxygen Saturation 99% 07/28/2025 10:31 AM EST Inhaled Oxygen Concentration - - Weight 73.5 kg (162 lb) 07/28/2025 9:26 AM EST Height 170.2 cm (5' 7 ) 07/28/2025 9:26 AM EST Body Mass Index 25.37 07/28/2025 9:26 AM EST documented in this encounter Progress Notes * Kaet Butts RN - 07/28/2025 9:19 AM EST Problem: Cognitive:Periop Procedure - Minor Goal: Knowledge of disease or condition will improve Outcome: Progressing Problem: Sensory:Periop Procedure - Minor Goal: Demonstrates/reports adequate pain control Outcome: Progressing PT VERBALIZED UNDERSTAND OF DC INSTRUCTIONS, FALL RISK REVIEWED, CALL [facility] AT BEDSIDE. documented in this encounter H&P Notes * Estrada Qiu MD - 07/28/2025 10:00 AM EST Pre-Op Diagnosis: Colon Cancer Screening Proposed Procedure: COLONOSCOPY Performing Surgeon/MD/Endoscopist: Estrada Qiu MD Medical/History: Medical History[1]Surgical History[2] Medications/Allergies: Prior to Admission medications Medication Sig Start Date End Date Taking? Authorizing Provider amLODIPine (NORVASC) 10 mg tablet TAKE 1 TABLET BY MOUTH EVERY DAY 03/13/23 Yes Historical Provider, atenoloL (TENORMIN) 25 mg tablet TAKE 1 TABLET BY MOUTH EVERY DAY 03/16/25 Yes Krystle Gavin MD atorvastatin (LIPITOR) 10 mg tablet TAKE 1 TABLET BY MOUTH EVERY DAY 05/17/25 Yes Krystle Gavin MD bisacodyL (DULCOLAX) 5 mg EC tablet Take 2 tablets by mouth right before beginning bowel prep. See instructions provided by the office 07/14/25 Yes Roya Hayes NP polyethylene glycol (Golytely) 236-22.74-6.74 -5.86 gram solution Take 4L by mouth once for one dose. May substitue any PEG. Starting at 2PM the day before your procedure drink 1 8oz glasses at your own pace until you complete half of the gallon. Finish 2nd half of the gallon at 8PM. 07/14/25 Yes Roya Hayes NP valsartan (DIOVAN) 320 mg tablet Take 1 Tablet by mouth daily. Yes Historical Provider, apixaban (Eliquis) 5 mg tablet Take 5 mg by mouth 2 times daily. 04/24/24 Historical Provider, fluticasone propionate (FLONASE) 50 mcg/actuation nasal spray Administer 1 spray into affected nostril(s) 1 (one) time each day. 03/01/25 03/01/26 Historical ProviderMD hydroCHLOROthiazide 12.5 mg tablet Take 1 Tablet by mouth See Admin Instructions. Take M,W,F 05/20/24istorical Provider, triamcinolone (KENALOG) 0.025 % cream APPLY TO AFFECTED AREA TWICE A DAY 05/20/24 Historical ProviderMD Patient Age:75 y.o. Vitals: Vitals: 07/28/25 0926 BP: (!) 155/88 Pulse: 103 Resp: 22 Temp: 36.1 ??C (97 ??F) SpO2: 100% Physical Exam: Mental Status: Clear HEENT: WNL Heart: WNL Lungs: WNL Abdomen: WNL Extremities: WNL Neuro: WNL Labs: Imaging: Diagnosis/Plan: COLON CANCER SCREENING/COLONOSCOPY [1] Past Medical History: Diagnosis Date Aortic regurgitation 10/25/2013 DX:Aortic regurgitation Atrial fibrillation (CMS/HCC V24, CMS/HCC V28) CKD (chronic kidney disease) stage 3, GFR 30-59 ml/min (CMS/HCC V24, CMS/HCC V28) 01/01/2011 DX:CKD (chronic kidney disease) stage 3, GFR 30-59 ml/min (HCC) HTN (hypertension) 01/01/2011 DX:HTN (hypertension) Pure hypercholesterolemia 01/01/2011 DX:Pure hypercholesterolemia [2] Past Surgical History: Procedure Laterality Date COLONOSCOPY 12/09/10 PROCEDURE: HISTORICAL COLONOSCOPY; COMMENT: hemorrhoids; repeat in ten years UMBILICAL HERNIA REPAIR N/A documented in this encounter Procedure Notes * James Davidson RN - 07/28/2025 10:38 AM EST Pt verbalizes understanding of discharge instructions. Fall risk reviewed. Brought down to transportation home via wheelchair * James Davidson RN - 07/28/2025 10:00 AM EST Pt verbalizes understanding of discharge instructions. Fall risk reviewed. Brought down to transportation home via wheelchair documented in this encounter Plan of Treatment Upcoming Encounters Date Type Department Care Team (Late st Contact Info) Description 08/25/2025 10:00 AM EST Office Visit Adult [address] [phone] Namrata Reardon MD [address] [place] [phone] 05/28/2026 2:30 PM EDT Ancillary Procedure [facility] - [address] [place] [address] Pending Results Name Type Priority Associated Diagnoses Date /Time Tissue exam Pathology and Cytology Routine Colon cancer screening 07/28/2025 10:07 AM EST Scheduled Orders Name Type Priority Associated Diagnoses Orde r Schedule Tissue exam Pathology and Cytology Timed Colon cancer screening Release Upon Ordering for 1 Occurrences starting 07/28/2025, 1 completed documented as of this encounter Goals Goal Patient Goal Type Associated Problems Recent Progress Patient-Stated? Author Autogenerat ed Goal Care Plan Autogenerated Problem No Emiliana Bedolla documented as of this encounter Procedures Procedure Name Priority Date/Time Associated Diagnosis Comments COLONOSCOPY Routine 07/28/2025 10:10 AM EST Colon cancer screening documented in this encounter Results * COLONOSCOPY Anesthesia - MAC; [facility] ENDOSCOPY (07/28/2025 10:10 AM EST) Anatomical Region Laterality Modality Endoscopy 07/28/2025 9:56 AM EST Impressions 07/28/2025 10:20 AM EST - One 10 mm polyp in the transverse colon, removed using injection-lift and a hot snare. Resected and retrieved. - Internal hemorrhoids. Recommendation: - Await pathology results. - Repeat colonoscopy in 5 years for surveillance. Narrative 07/28/2025 10:20 AM EST [facility] GI Patient Name: Andrea Conway Procedure Date: 07/28/2025 9:56 AM Date of : 1950 Age: 75 Gender: Male Note Status: Finalized Attending MD: Estrada Qiu MD, Procedure Date No Time: 07/28/2025 Procedure: Colonoscopy Indications: Screening for colorectal malignant neoplasm Providers: Estrada Qiu MD Referring MD: Estrada Qiu MD Medicines: Monitored Anesthesia Care Complications: No immediate complications. Estimated blood loss: Minimal. Estimated Blood Loss: Estimated blood loss was minimal. Procedure: Pre-Anesthesia Assessment: - Prior to the procedure, a History and Physical was performed, and patient medications and allergies were reviewed. The patient is competent. The risks and benefits of the procedure and the sedation options and risks were discussed with the patient. All questions were answered and informed consent was obtained. Patient identification and proposed procedure were verified by the physician, the nurse, the strip winder and the civil laboratory technician in the pre-procedure area in the endoscopy suite. Mental Status Examination: alert and oriented. Airway Examination: normal oropharyngeal airway and neck mobility. Respiratory Examination: clear to auscultation. CV Examination: normal. Prophylactic Antibiotics: The patient does not require prophylactic antibiotics. Prior Anticoagulants: The patient has taken no anticoagulant or antiplatelet agents. ASA Grade Assessment: II - A patient with mild systemic disease. After reviewing the risks and benefits, the patient was deemed in satisfactory condition to undergo the procedure. The anesthesia plan was to use monitored anesthesia care (MAC). Immediately prior to administration of medications, the patient was re-assessed for adequacy to receive sedatives. The heart rate, respiratory rate, oxygen saturations, blood pressure, adequacy of pulmonary ventilation, and response to care were monitored throughout the procedure. The physical status of the patient was re-assessed after the procedure. After I obtained informed consent, the scope was passed under direct vision. Throughout the procedure, the patient's blood pressure, pulse, and oxygen saturations were monitored continuously. The Colonoscope was introduced through the anus and advanced to the cecum, identified by appendiceal orifice and ileocecal valve. The colonoscopy was performed without difficulty. The patient tolerated the procedure well. The quality of the bowel preparation was good. Findings: The perianal and digital rectal examinations were normal. A 10 mm polyp was found in the transverse colon. The polyp was flat. The polyp was removed with a saline injection-lift technique using a hot snare. Resection and retrieval were complete. Estimated blood loss was minimal. Internal hemorrhoids were found during retroflexion. The hemorrhoids were Grade II (internal hemorrhoids that prolapse but reduce spontaneously). Procedure Code(s): --- Professional --- 18755, Colonoscopy, flexible; with removal of tumor(s), polyp(s), or other lesion(s) by snare technique 72960, Colonoscopy, flexible; with directed submucosal injection(s), any substance Diagnosis Code(s): --- Professional --- D12.3, Benign neoplasm of transverse colon (hepatic flexure or splenic flexure) CPT copyright 2020 [employer]. All rights reserved. The codes documented in this report are preliminary and upon set making machine operator review may be revised to meet current compliance requirements. Estrada Qiu MD 07/28/2025 10:20:19 AM This report has been signed electronically.Estrada Qiu MD Number of Addenda: 0 Note Initiated On: 07/28/2025 9:56 AM Scope Withdrawal Time: 0 hours 8 minutes 42 seconds Scope In: 10:01:18 AM Scope Out: 10:12:53 AM Endoscopy Department at [facility] - [address] [place] [phone] Procedure Note Estrada Qiu MD - 07/28/2025 [facility] GI Patient Name: Andrea Conway Procedure Date: 07/28/2025 9:56 AM Date of : 1950 Age: 75 Gender: Male Note Status: Finalized Attending MD: Estrada Qiu MD, Procedure Date No Time: 07/28/2025 Procedure: Colonoscopy Indications: Screening for colorectal malignant neoplasm Providers: Estrada Qiu MD Referring MD: Estrada Qiu MD Medicines: Monitored Anesthesia Care Complications: No immediate complications. Estimated blood loss: Minimal. Estimated Blood Loss: Estimated blood loss was minimal. Procedure: Pre-Anesthesia Assessment: - Prior to the procedure, a History and Physicalwas performed, and patient medications and allergieswere reviewed. The patient is competent. The risks and benefits of the procedure and the sedation optionsand risks were discussed with the patient. Allquestions were answered and informed consent was obtained. Patient identification and proposed procedure were verified by the physician, the nurse, theanesthetist and the civil laboratory technician in the pre-procedure area in the endoscopy suite. Mental Status Examination: alertand oriented. Airway Examination: normal oropharyngeal airway and neck mobility. Respiratory Examination: clear to auscultation. CV Examination: normal. Prophylactic Antibiotics: The patient does notrequire prophylactic antibiotics. Prior Anticoagulants: The patient has taken no anticoagulant or antiplatelet agents. ASA Grade Assessment: II - A patient withmild systemic disease. After reviewing the risks and benefits, the patient was deemed in satisfactory condition to undergo the procedure. The anesthesia plan was to use monitored anesthesia care (MAC). Immediately prior to administration of medications, the patient was re-assessed for adequacy to receive sedatives. The heart rate, respiratory rate, oxygen saturations, blood pressure, adequacy of pulmonary ventilation, and response to care were monitored throughout the procedure. The physical status ofthe patient was re-assessed after the procedure. After I obtained informed consent, the scope was passed under direct vision. Throughout theprocedure, the patient's blood pressure, pulse, and oxygen saturations were monitored continuously. The Colonoscope was introduced through the anus and advanced to the cecum, identified by appendiceal orifice and ileocecal valve. The colonoscopy was performed without difficulty. The patient tolerated the procedure well. The quality of the bowel preparation was good. Findings: The perianal and digital rectal examinations were normal. A 10 mm polyp was found in the transverse colon.The polyp was flat. The polyp was removed with a saline injection-lift technique using a hot snare.Resection and retrieval were complete. Estimated blood losswas minimal. Internal hemorrhoids were found duringretroflexion. The hemorrhoids were Grade II (internal hemorrhoids that prolapse but reduce spontaneously). Procedure Code(s): --- Professional --- 82734, Colonoscopy, flexible; with removal of tumor(s), polyp(s), or other lesion(s) by snare technique 85082, Colonoscopy, flexible; with directedsubmucosal injection(s), any substance Diagnosis Code(s): --- Professional --- D12.3, Benign neoplasm of transverse colon (hepatic flexure or splenic flexure) CPT copyright 2020 [employer]. All rights reserved. The codes documented in this report are preliminary and upon set making machine operator reviewmay be revised to meet current compliance requirements. Estrada Qiu MD 07/28/2025 10:20:19 AM This report has been signed electronically.Estrada Qiu MD Number of Addenda: 0 Note Initiated On: 07/28/2025 9:56 AM Scope Withdrawal Time: 0 hours 8 minutes 42 seconds Scope In: 10:01:18 AM Scope Out: 10:12:53 AM Endoscopy Department at [facility] - [address] [place] [phone] IMPRESSION: - One 10 mm polyp in the transverse colon, removed using injection-lift and a hot snare. Resected and retrieved. - Internal hemorrhoids. Recommendation: - Await pathology results. - Repeat colonoscopy in 5 years for surveillance. Estrada Qiu MD GI~PROCEDURE ORDERABLES Fin al Result documented in this encounter Visit Diagnoses Diagnosis Colon cancer screening Special screening for malignant neoplasms, colon documented in this encounter Additional Health Concerns Active Problems Noted Date Diagnosed Date Autogenerated Problem 06/29/2025 Assessment Noted Time PHQ-9 Depression Total Score: 0 04/14/20 25 1:42 PM EDT A fall risk assessment has been complete d for the patient 04/14/2025 1:39 PM EDT documented as of this encounter Care Teams Cnc Service Technician Relationship Specialty Start Date End Date Namrata Reardon MD [address] [place] [address] PCP - General Internal Medicine 07/18/24 documented as of this encounter
--- OUTSIDE RECORDS SUMMARY | 2025-07-28 09:45 | XMS_ITS | Encounter Summary ---
Author Organization [facility] Address [address] [place] [phone] Care Team Providers Care Building Contractor Name Role Phone Namrata Reardon MD Primary Care Provider [phone] Reason for Visit * Auth/Cert (Routine) Specialty Diagnoses / Procedures Referred By Virgilio ugalde Referred To Contact Diagnoses Encounter for screening for malignant neoplasm of colon Procedures COLONOSCOPY [facility] [id number] [place] [phone] [facility] [address] [place] [address] Phone: tel: Referral ID Status Reason Start Date Expiration Date Visits Re quested Visits Authorized [id number] 1 1 Encounter Details Date Type Department Care Team (Late st Contact Info) Description 07/28/2025 9:45 AM EST Anesthesia Event [facility] [address] [place] [address] Erickson Villa MD [address] [place] [address] Anesthesia Record Procedure Summary Procedure Name Responsible Anesthesiologist Anesthesia Start Time Anesthesia Stop Time COLONOSCOPY Erickson Villa MD 07/28/25 0945 07/28/25 1013 Events Date Time Event Comment 07/28/2025 0945 0945 An Start 0945 An Start Data The patient wa s reevaluated immediately before moderate or deep sedation use and before anesthesia induction. 0945 Anesthesia Ready 0946 In Room 1010 an stop data 1010 Transport to PACU/ICU Patien t reassessed and ready for transfer, airway stable. Patient transport to designated recovery area. {Transport to PACU/ICU:[id number]} 1010 Out of Room 1011 Handoff to RN I completed my handoff to the receiving nurse during which we: 1. Identified the patient 2. Identified the responsible provider 3. Reviewed the pertinent medical history 4. Discussed the surgical course 5. Reviewed intra-op anesthesia management and issues during anesthesia 6. Set expectations for post-procedure period 7. Allowed opportunity for questions and acknowledgement of understanding. 1013 An Stop Meds Name Total propofol (DIPRIVAN) injection 10 mg/mL 2 50 mg lidocaine PF (XYLOCAINE-MPF) local injec tion 2% 100 mg lactated Ringer's infusion 600 mL * Agents Name O2 * Blood No blood administrations on file. Lines, Drains, and Airways Type Details Placement Removal Peripheral IV Placement Date: 07/15 01/06; Placement Time: 932; Orientation: Posterior, Right; Location: Wrist; Site Prep: Chlorhexidine; Insertion Attempts: 1; Patient Tolerance: Tolerated well; Removal Date: 07/28/25; Removal Time: 1031 07/28/25 09 by Kate Butts RN 07/28/25 103 by James Davidson RN documented in this encounter Social History Tobacco Use Types Packs/Day Years [...] Record ed Within the last 3 months, ho w many times did you visit the emergency [...] care for your loved ones. For example, children's zoo caretaker or elderly care for an older adult? [...] as of this encounter Progress Notes * Shayan Chavez CRNA - 07/28/2025 10:13 AM EST Patient: Andrea Conway Procedure Summary Date: 07/28/25 Room / Location: [facility] Anesthesia Start: 944 Anesthesia Stop: 1012 Procedure: COLONOSCOPY Diagnosis: Colon cancer screening Scheduled Providers: Estrada Qiu MD; Shayan Chavez CRNA; Erickson Villa MD Responsible Provider: Erickson Villa MD Anesthesia Type: MAC ASA Status: 3 Anesthesia Plan: MAC Last Vitals: Vitals Value Taken Time BP 07/28/25 10:13 Temp 07/28/25 10:13 Pulse 07/28/25 10:13 Resp 07/28/25 10:13 SpO2 07/28/25 10:13 No data recorded Anesthesia Post Evaluation Patient location during evaluation: PACU Patient participation: waiting for patient participation Level of consciousness: responsive to light touch Pain score: 0 Airway patency: patent Anesthetic complications: no Cardiovascular status: acceptable and stable Respiratory status: acceptable Hydration status: acceptable Nausea: No Vomiting: No There were no known notable events for this encounter. * Erickson Villa MD - 07/28/2025 9:38 AM EST 75 y.o. male scheduled for [COLONOSCOPY [GI6]] Ht Readings from Last 1 Encounters: 07/28/25 1.702 m (67 ) Wt Readings from Last 1 Encounters: 07/28/25 73.5 kg (162 lb) Body mass index is 25.37 kg/m??. Medical History[1] Surgical History[2] Denies anesthesia complications Allergies[3] Medications Ordered Prior to Encounter[4] Current In-hospital Medications MEDSSCHEDULED[5] MEDSCONTINUOUS[6] MEDSPRN[7] Social History[8] Visit Vitals BP (!) 155/88 Pulse 103 Temp 36.1 ??C (97 ??F) (Tympanic) Resp 22 Ht 1.702 m (67 ) Wt 73.5 kg (162 lb) SpO2 100% BMI 25.37 kg/m?? Smoking Status Never BSA 1.85 m?? Available cardiac studies reviewed: No results found. EKG Encounter Date: 05/31/25 ECG 12 lead Result Value Ventricular Rate ECG 78 Atrial Rate 84 QRS Duration 82 Q-T Interval 392 QTc 446 R Moorland -18 T [place] 62 ECG Interpretation Atrial fibrillation No previous ECGs available Confirmed by BELEN PARKS ([id number]) on 05/31/2025 12:22:45 PM *Note: Due to a large number of results and/or encounters for the requested time period, some results have not been displayed. A complete set of results can be found in Results Review. ECHO No results found for this or any previous visit. CATH No results found for this or any previous visit. LABS: Lab Results Component Value Date WBC 6.6 04/14/2025 HGB 14.3 04/14/2025 HCT 45.8 04/14/2025 MCV 95.6 04/14/2025 PLT 188 04/14/2025 Lab Results Component Value Date GLUCOSE 85 04/14/2025 CALCIUM 9.6 04/14/2025 NA 137 04/14/2025 K 3.9 04/14/2025 CO2 30 04/14/2025 CL 102 04/14/2025 BUN 23 04/14/2025 CREATININE 1.28 04/14/2025 No results found for: INR , PROTIME No results found for: PTT Denies cardiac, pulm, neuro, hepatic or renal s/sx. Patient meets ASA guidelines for NPO status. > 4 mets without anginal symptoms. Relevant labs, vitals, imaging, cardiac and pulmonary studies as well as HPI, Meds, Allergies, ROS,PMH, PSH, SH, and FH reviewed. Relevant Problems Cardio (+) Aortic regurgitation (+) Atrial fibrillation (CMS/HCC V24, CMS/HCC V28) (+) Dilation of aorta (CMS/HCC V24) (+) HTN (hypertension) Neuro/Psych (+) Acute ischemic right MCA stroke (CMS/HCC V24, CMS/HCC V28) Clinical information reviewed: Tobacco Allergies Meds Med Hx Surg Hx Fam Hx Soc Hx Anesthesia Plan ASA 3 Anesthesia Plan: MAC Anesthesia Considerations MAC Anesthesia Risks Discussed dental injury, allergic reaction, serious complications and corneal abrasion Induction method: N/A Anesthetic plan and risks discussed with patient. Anesthesia Plan discussed with POSSUM TRAPPER. Anesthesia Evaluation Patient summary reviewed and Nursing notes reviewed Airway Mallampati: III Thyromental distance: >3 FB Neck ROM: fullnot intubatedno noted risk Dental Comment: Caps Pulmonary breath sounds clear to auscultation Cardiovascular (+) hypertension, dysrhythmias Rhythm: regular Rate: normal Neuro/Psych (+) CVA Mental Status: alert and oriented GI/Hepatic/Renal (+) chronic renal disease Endo/Other Abdominal Abdomen: soft. Bowel sounds: normal. PONV RISK SCORE: 1 Vitals: 07/28/25 0926 BP: (!) 155/88 Pulse: 103 Resp: 22 Temp: 36.1 ??C (97 ??F) TempSrc: Tympanic SpO2: 100% Weight: 73.5 kg (162 lb) Height: 1.702 m (67 ) SpO2 Readings from Last 1 Encounters: 07/28/25 100% WBC Date Value Ref Range Status 04/14/2025 6.6 4.8 - 10.8 K/mcL Final RBC Date Value Ref Range Status 04/14/2025 4.80 4.50 - 5.50 M/mcL Final Hemoglobin Date Value Ref Range Status 04/14/2025 14.3 13.5 - 17.5 g/dL Final Hematocrit Date Value Ref Range Status 04/14/2025 45.8 42.0 - 54.0 % Final Platelets Date Value Ref Range Status 04/14/2025 188 130 - 400 K/mcL Final MCV Date Value Ref Range Status 04/14/2025 95.6 79.0 - 98.0 FL Final Allergies[9] STOP BANG: No data recorded NPO Status: Time of Last Liquid: 2200 Time of Last Solid: 1900 [1] Past Medical History: Diagnosis Date Aortic regurgitation 10/25/2013 DX:Aortic regurgitation Atrial fibrillation (CMS/HCC V24, CMS/HCC V28) CKD (chronic kidney disease) stage 3, GFR 30-59 ml/min (CMS/HCC V24, CMS/HCC V28) 01/01/2011 DX:CKD (chronic kidney disease) stage 3, GFR 30-59 ml/min ([facility]) HTN (hypertension) 01/01/2011 DX:HTN (hypertension) Pure hypercholesterolemia 01/01/2011 DX:Pure hypercholesterolemia [2] Past Surgical History: Procedure Laterality Date COLONOSCOPY 12/09/10 PROCEDURE: HISTORICAL COLONOSCOPY; COMMENT: hemorrhoids; repeat in ten years UMBILICAL HERNIA REPAIR N/A [3] No Known Allergies [4] Current Outpatient Medications on File Prior to Encounter Medication Sig Dispense Refill amLODIPine (NORVASC) 10 mg tablet TAKE 1 TABLET BY MOUTH EVERY DAY atenoloL (TENORMIN) 25 mg tablet TAKE 1 TABLET BY MOUTH EVERY DAY 90 tablet 3 atorvastatin (LIPITOR) 10 mg tablet TAKE 1 TABLET BY MOUTH EVERY DAY 90 tablet 3 bisacodyL (DULCOLAX) 5 mg EC tablet Take 2 tablets by mouth right before beginning bowel prep. See instructions provided by the office 2 tablet 0 polyethylene glycol (Golytely) 236-22.74-6.74 -5.86 gram solution Take 4L by mouth once for one dose. May substitue any PEG. Starting at 2PM the day before your procedure drink 1 8oz glasses at your own pace until you complete half of the gallon. Finish 2nd half of the gallon at 8PM. 4000 mL 0 valsartan (DIOVAN) 320 mg tablet Take 1 Tablet by mouth daily. apixaban (Eliquis) 5 mg tablet Take 5 mg by mouth 2 times daily. fluticasone propionate (FLONASE) 50 mcg/actuation nasal spray Administer 1 spray into affected nostril(s) 1 (one) time each day. hydroCHLOROthiazide 12.5 mg tablet Take 1 Tablet by mouth See Admin Instructions. Take M,W,F triamcinolone (KENALOG) 0.025 % cream APPLY TO AFFECTED AREA TWICE A DAY No current facility-administered medications on file prior to encounter. [5] [6] [7] [8] Social History Tobacco Use Smoking status: Never Passive exposure: Never Smokeless tobacco: Never Substance Use Topics Alcohol use: Yes Drug use: No [9] No Known Allergies documented in this encounter Plan of Treatment Upcoming Encounters Date Type Department Care Team (Late st Contact Info) Description 08/25/2025 10:00 AM EST Office Visit Adult Medicine [address] [phone] Namrata Reardon MD [address] [place] [address] 05/28/2026 2:30 PM EDT Ancillary Procedure [facility] [address] [facility] Toni [address] [place] [phone] documented as of this encounter Goals Goal Patient Goal Type Associated Problems Recent Progress Patient-Stated? Author Autogenerat ed Goal Care Plan Autogenerated Problem No Emiliana Bedolla documented as of this encounter Visit Diagnoses Not on filedocumented in this encounter Administered Medications Inactive Administered Medications - up to 3 most recent administrations Medication Order MAR Action Action Date Dose Rate Site lactated Ringer's infusion intravenous, Continuous PRN, Starting on Thu07/28/25 at 0939, Anesthesia Intraprocedure New Bag 07/28/2025 9:39 AM EST 100 mL/hr lidocaine (PF) (XYLOCAINE-MPF) 2 % injection injection, As needed, Starting on Thu07/28/25 at 0959, Anesthesia Intraprocedure Given 07/28/2025 9:59 AM EST 100 mg propofoL (DIPRIVAN) injection intravenous, As needed, Starting on Thu07/28/25 at 0959, Anesthesia Intraprocedure Given 07/28/2025 10:04 AM EST 100 mg Given 07/28/2025 9:59 AM EST 150 mg documented in this encounter Additional Health Concerns Active Problems Noted Date Diagnosed Date Autogenerated Problem 06/29/2025 Assessment Noted Time PHQ-9 Depression Total Score: 0 04/14/20 1:42 PM EDT A fall risk assessment has been complete d for the patient 04/14/2025 1:39 PM EDT documented as of this encounter Care Teams Building Contractor Relationship Specialty Start Date End Date Namrata Reardon MD [address] [place] [phone] PCP - General Internal Medicine 07/18/24 documented as of this encounter
--- NOTE | ~2025-07-31 | CT_ITS ---
CLINICAL HISTORY: Rectal Bleeding; Recent Colonoscopy; Thinners CT angiography abdomen and pelvis with contrast. 3-D post processing. Comparison: None provided Findings: Included lung bases unremarkable. Abdominal solid organs without acute abnormality or abnormal enhancement. Gallbladder nondistended. Adrenal glands are nonenlarged. The stomach and bowel loops are not dilated. There are areas of hyperdensity within the lumen of the ascending colon, compatible with fresh hemorrhagic products, posteriorly active extravasation, axial images 54-70, series 11. There no evidence of pneumatosis. No aortic dissection or aneurysm. Widely patent aortic branches. The portal and mesenteric veins are patent. No evidence of mesenteric or portal venous gas. No abdominopelvic lymphadenopathy. The bladder is normal. There no acute soft tissue or skeletal abnormality in the abdomen or pelvis. Degenerative changes noted in the lumbar spine. IMPRESSION: There are fresh hyperdense products within the lumen of the ascending colon, concerning for hemorrhage/active extravasation. Recommend stat GI consultation. No aortic dissection or aneurysm. No mesenteric or pelvic lymphadenopathy. This document has been electronically signed by: Philippe Starks MD on 07/31/2025 03:24:15
[2025-07-31 00:06] VITALS: BP 142/80; PULSE 99; RESP 18; TEMP 36.3; O2SAT 100; BMI 26.0
--- NOTE | 2025-07-31 00:27 | ED_ITS ---
HPI - GI Bleed General Chief complaint: GI Bleed Stated complaint: General Medical/Rectal bleed Time Seen by Provider: 07/31/25 00:20 History of Present Illness ED Provider: katalina GARCIA Narrative: [age] male with AFib on apixaban last dose 18:30 on the 30 of July. The patient had a colonoscopy on the 28 of July in the morning the report indicates a 1 mm flat polyp that was removed with hot snare in the transverse colon. The patient had normal BMs after the procedure until this evening when he developed moderate volume hematochezia 1 episode prior to arrival in 1 episode here which looks like substantial amount of bright red blood mixed with stool. Related Data Home Medications ?Medication ?Instructions ?Recorded ?Confirmed amlodipine 10 mg tablet 10 mg PO DAILY 03/14/24 atenolol 25 mg tablet 25 mg PO DAILY 03/14/24 atorvastatin 10 mg tablet 10 mg PO DAILY 03/14/24 hydrochlorothiazide 25 mg tablet 25 mg PO DAILY valsartan 160 mg tablet 160 mg PO DAILY 03/14/24 valsartan 320 mg tablet 320 mg PO DAILY 03/14/24 Previous Rx's ?Medication ?Instructions ?Recorded triamcinolone acetonide 0.025 % 1 appl topical BID #80 grams 03/14/24 topical cream Allergies Allergy/AdvReac Type Severity Reaction Status Date / Time pollen extracts Allergy congestion Verified 07/31/25 00:12 [facility] Social History Social History Alcohol intake: current Alcohol intake frequency: 0-2 drinks per day Alcohol type: beer and wine Patient Tobacco Use Status: Never used Tobacco Smoked in Last 30 Days: No Use of substances other than those prescribed or required for medical reasons: No Advance Directives: Yes Advance Directives on File: Yes Advance Directives Date on File: 04/22/24 Physical Exam 2 Exam: Exam: EXAM: Gen: Alert, awake, well appearing, well hydrated. Head: Atraumatic Eyes: Anicteric, Normal conjunctiva. ENT: Moist mucosa, no pallor. ? Neck: Supple. Skin: ?No observable rash or bruising on exposed or examined skin Respiratory: Breathing comfortably, No distress.Clear to auscultation bilaterally, symmetric chest expansion, No wheeze, rales, ronchi. Cardiovascular: Regular rate and rhythm. No murmurs or rub. Well perfused periphery, warm extremities. No edema. ? Abdominal: No focal tenderness. Soft, no objective distension. No palpable masses or obvious organomegaly. ?No guarding, no rebound tenderness or other peritoneal findings. : No flank tenderness. Neuro: Alert. Gross movement of all extremities intact. ? Psych: Calm. Cooperative. MSK: No grossly visible deformity. Vital signs: See flowsheet Vital Signs: Vital Signs: Last Vital Signs Temp 98.1 F 07/31/25 04:28 Pulse 74 07/31/25 04:28 Resp 13 07/31/25 04:28 BP 146/88 H 07/31/25 04:28 Pulse Ox 99 07/31/25 04:28 O2 Del Method Room Air 07/31/25 04:28 BMI result Body Mass Index 26.0 Course Reevaluation(s) Reevaluation #1: 3:45 AM 07/31/2025 (Dr. Jacinto Miller): I received a call about 5 minutes ago from [facility] their report reveals active extravasation in the ascending colon this probably correlates with the snare polypectomy site. With the patient has had some hemoglobin drop but remains hemodynamically stable. No indication for transfusion but we will continue to watch him closely if there was any hemodynamic decompensation we will transfuse aggressively. I have made the decision to reverse the apixaban with P cc at this time daughter's agreeable to this. [facility] was close to GI bleed diagnosis as a transfer. [facility] and [facility] do not have 247 interventional radiology so I do not feel comfortable sending him there case he would need rescue embolization. [facility] has accepted Dr. Purvis ED to ED Medications Administered Discontinued Medications Generic Name Dose Route Start Last Admin Trade Name Kenneyq PRN Reason Stop Dose Admin Tranexamic Acid 1,000 mg/ 260 mls @ 32.5 mls/hr 07/31/25 00:26 07/31/25 03:27 Sodium Chloride IV 07/31/25 08:25 Infused .Q8H ONE Infusion Prothrombin Complex Concent ( 80 mls @ 480 mls/hr 07/31/25 03:30 07/31/25 04:11 Human) 2,000 unit/ IV IV 07/31/25 03:39 Infused Miscellaneous Supplies .Q10M ONE Infusion Iohexol 100 ml 07/31/25 01:49 07/31/25 01:49 Iohexol 350 Mg/Ml 100 Ml Infus..Btl IV 07/31/25 01:50 80 ml ONCE ONE Administration Medical Decision Making Medical Decision Making MDM Narrative: Medical Decision Makin-year-old male several days status post colonoscopy with polypectomy on apixaban now with hematochezia . Patient arrived hemodynamically stable having had only 1 or 2 episodes of dark and blood-tinged liquid stool. In the ED he has had several additional episodes. He is on a beta-phill which may be blunting tachycardic response but he has not been hypotensive. Initial hemoglobin 11.5 dropped to 10.6 after proximally 2 hours. Platelets from 174 down to 156. No leukocytosis. No other actionable lab findings. Upon seeing the hemoglobin drop and patient having persistent hematochezia episodes in the ED I have decided to do a full reversal after risks benefit and shared decision-making discussion with the patient and his daughter who is nursing staff member here at [facility]. CT angio GI bleed protocol performed Preliminary Favored Differential Diagnosis: upper GI bleed, lower GI bleed, including possibly AVM or post polypectomy bleeding, rectal hemorrhoid bleeding iatrogenic mucosal bleeding less likely perforation given the lack of tenderness or peritoneal signs among additional considered etiologies Testing Interpreted Independently: ?See below for details Radiology or Lab testing Results Reviewed: ? reviewed radiology reading Consults: ? transfer center [place] Independent Historians/External Chart Reviews: ?See below for details Social Determinants of Health Impacting MDM/Planning: ?See below for details Lab Data 07/31/25 02:36 07/31/25 00:34 Labs: Lab Results 07/31/25 07/31/25 07/31/25 Range/Units 00:34 00:36 02:36 WBC 6.1 5.0 (4.8-10.8) X10*3/uL RBC 3.76 L 3.46 L (4.60-5.80) X10*6/uL Hgb 11.5 L 10.6 L (14.0-18.0) g/dl Hct 36.1 L 33.2 L (42.0-52.0) % MCV 96.0 96.0 (80.0-98.0) fL MCH 30.6 30.6 (27.0-33.0) pg MCHC 31.9 31.9 (31.0-36.0) g/dl RDW 15.2 15.2 (11.0-16.0) % Plt Count 174 156 L (160-400) X10*3/uL MPV 11.6 11.4 (9.4-12.4) fL Immature Gran % (Auto) 0.5 H (0.0-0.4) % Neut % (Auto) 38.3 L (45-73) % Lymph % (Auto) 44.2 H (20-40) % Teller % (Auto) 13.9 H (2-11) % Eos % (Auto) 2.1 (0-4) % Baso % (Auto) 1.0 (0-2) % Lymph # (Auto) 2.7 (1.2-4.9) X10*3/uL Teller # (Auto) 0.9 (0.1-1.2) X10*3/uL Eos # (Auto) 0.1 (0.0-0.4) X10*3/uL Baso # (Auto) 0.1 (0.0-0.2) X10*3/uL Abs Immat Gran (auto) 0.03 (0.00-0.03) X10*3/uL Absolute Neuts (auto) 2.3 (2.0-8.3) x10*3/uL Absolute Nucleated RBC 0.000 0.000 (0.0-0.012) X10*3/uL Nucleated RBC % (auto) 0.0 0.0 (0.0-0.2) /100WBC PT 15.3 H (11.2-13.5) SEC INR 1.3 H (0.9-1.1) APTT 29.6 (26.7-34.1) SEC Sodium 144 (135-145) mmol/L Potassium 3.8 (3.3-5.1) mmol/L Chloride 110 H (96-108) mmol/L Carbon Dioxide 24 (22-29) mmol/L Anion Gap 14 (12-20) BUN 28 H (9-16) mg/dL Creatinine 1.17 (0.5-1.4) mg/dL Estim Creat Clear Calc 51.0 Estimated GFR > 60 Random Glucose 152 H (60-115) mg/dL Calcium 9.1 (8.4-10.2) mg/dL Total Bilirubin 0.4 (0.0-1.0) mg/dL AST 53 H (5-37) U/L ALT 54 H (0-40) U/L Alkaline Phosphatase 81 (39-117) U/L Total Protein 7.3 (6.5-8.0) g/dL Albumin 4.0 (3.5-5.0) g/dL Blood Type A Positive Antibody Screen NEGATIVE Critical Care Time Critical Care Time Critical Care Time: Yes Total Critical Care Time: 50 Attestation: ED Critical Care: Authorized and Performed by: Jacinto Miller MD Total critical care time: Approximately 50 min Due to a high probability of clinically significant, life threatening deterioration, the patient required my highest level of preparedness to intervene emergently and I personally spent this critical care time directly and personally managing the patient. This critical care time included obtaining a history; examining the patient; pulse oximetry; ordering and review of studies; arranging urgent treatment with development of a management plan; evaluation of patient's response to treatment; frequent reassessment; and, discussions with other providers. This critical care time was performed to assess and manage the high probability of imminent, life-threatening deterioration that could result in multi-organ failure. It was exclusive of separately billable procedures and treating other patients and teaching time. Discharge Plan Discharge Clinical Impression: Lower gastrointestinal hemorrhage, Hematochezia Patient Disposition: [facility] Transfer Details: Dr. Purvis accepting ED to ED [facility] for possible emergent gastroenterology or IR procedure Instructions: Rectal Bleeding (ED) Prescriptions: No Action atorvastatin 10 mg tablet 10 mg PO DAILY valsartan 320 mg tablet 320 mg PO DAILY hydrochlorothiazide 25 mg tablet 25 mg PO DAILY amlodipine 10 mg tablet 10 mg PO DAILY atenolol 25 mg tablet 25 mg PO DAILY valsartan 160 mg tablet 160 mg PO DAILY triamcinolone acetonide 0.025 % cream 1 appl topical BID Qty: 80 0RF Interventions: Acute Care Transfer Worksheet (ED) Last Done: 07/31/25 04:28 Discharge Date/Time: 07/31/25 04:37 Print Language: Bulgarian
--- OUTSIDE RECORDS SUMMARY | 2025-07-31 00:42 | XMS_ITS | Encounter Summary ---
Author Organization [facility], Address [address] [place] [address] Phone Care Team Providers Care Media Consultant Name Role Phone Namrata Reardon MD Primary Care Provider [phone] Encounter Details Date Type Department Care Team (Late st Contact Info) Description 09/15/2024 Documentation Only [facility] [address] [place] [address] [place] [address] [place] [phone] Social History Tobacco Use Types Packs/Day Years [...] Care Team (Late st Contact Info) Description 08/30/2025 5:50 PM EST Office Visit [facility] [address] [place] [address] Jaswant Cheung MD [address] [place] [address] [place] [address] documented as of this encounter Visit Diagnoses Not on filedocumented in this encounter Care Teams Media Consultant Relationship Specialty Start Date End Date Namrata Reardon MD PCP - General Internal Medicine 04/26/24 documented as of this encounter
--- OUTSIDE RECORDS SUMMARY | 2025-07-31 00:42 | XMS_ITS | Encounter Summary ---
Author Organization [facility], Address [address] [place] [address] Phone Care Team Providers Care Process Server Name Role Phone Namrata Reardon MD Primary Care Provider [phone] Encounter Details Date Type Department Care Team (Late st Contact Info) Description 09/15/2024 Documentation Only [facility] [address] [place] [address] [place] [address] [place] [phone] Social History Tobacco Use Types Packs/Day [...] Visit [facility] [address] [place] [address] Jaswant Cheung MD [address] [place] [address] [place] [address] documented as of this encounter Visit Diagnoses Not on filedocumented in this encounter Care Teams Process Server Relationship Specialty Start Date End Date Namrata Reardon MD PCP - General Internal Medicine 04/26/24 documented as of this encounter
--- OUTSIDE RECORDS SUMMARY | 2025-07-31 00:42 | XMS_ITS | Encounter Summary ---
Author Organization [facility] [place], Address [address] [place] [address] Phone Care Team Providers Care Front Attendant Name Role Phone Namrata Reardon MD Primary Care Provider [phone] Reason for Visit * Reason Comments Med Refill Encounter Details Date Type Department Care Team (Late Contact Info) Description 10/12/2023 [facility]ill [facility] [address] [place] [phone] Jaswant Cheung MD [address] [facility] [place] [address] Social History Tobacco Use Types [...] Department Care Team (Late Contact Info) Description 08/30/2025 5:50 PM EST Office Visit [facility] [place], [address] [place] [address] Jaswant Cheung MD [address] [facility] [place] [phone] documented as of this encounter Visit Diagnoses Not on filedocumented in this encounter Care Teams Front Attendant Relationship Specialty Start Date End Date Namrata Reardon MD PCP - General Internal Medicine 04/26/24 documented as of this encounter
--- OUTSIDE RECORDS SUMMARY | 2025-07-31 00:43 | XMS_ITS | Encounter Summary ---
Author Organization [facility] [place], Address [address] [place] [address] Phone Care Team Providers Care Sugar Mill Worker Name Role Phone Namrata Reardon MD Primary Care Provider [phone] Encounter Details Date Type Department Care Team (Late st Contact Info) Description 12/22/2023 Documentation Only [facility] [address] [place] [address] [place] [address] [place] [phone] Social History Tobacco Use Types Packs/Day [...] Visit [facility] [address] [place] [address] Jaswant Cheung MD [address] [place] [address] [place] [address] documented as of this encounter Visit Diagnoses Not on filedocumented in this encounter Care Teams Sugar Mill Worker Relationship Specialty Start Date End Date Namrata Reardon MD PCP - General Internal Medicine 04/26/24 documented as of this encounter
--- OUTSIDE RECORDS SUMMARY | 2025-07-31 00:43 | XMS_ITS | Encounter Summary ---
Author Organization [facility] Address [address] [place] [address] Care Team Providers Care Overnight Babysitter Name Role Phone Namrata Reardon MD Primary Care Provider [phone] Encounter Details Date Type Department Care Team (Late st Contact Info) Description 06/21/2025 Lab Requisition [facility] [address] [facility] [place] [address] Manpreet Tellez MD [address] [facility] [address] [place] [address] Elevated prostate specific antigen (PSA) Social History Tobacco Use Types Packs/Day Years [...] care for your loved ones. For example, early childhood associate teacher or elderly care for an older adult? [...] your living situation? Unrecognized valu e 04/14/2025 Sex and Gender Information Value Date Recorded Sex Assigned at Not on file Legal Sex Male 5:35 PM EST Gender Identity Not on file Sexual Orientation Not on file documented as of this encounter Plan of Treatment Upcoming Encounters Date Type Department Care Team (Late st Contact Info) Description 08/25/2025 10:00 AM EST Office Visit Adult Medicine [address] [phone] Namrata Reardon MD [address] [place] [address] 05/28/2026 2:30 PM EDT Ancillary Procedure [facility] [address] [place] [phone] documented as of this encounter Procedures Procedure Name Priority Date/Time Associated Diagnosis Comments TISSUE EXAM Routine 06/20/2025 Elevated prostate specific antigen (PSA) documented in this encounter Results * Tissue Exam (06/20/2025) Final Diagnosis A. Prostate, Left Middle [place] Biopsy: - Prostatic acinar adenocarcinoma (conventional type), grade group 2 ([place] score 3+4=7). - Percentage pattern 4: 5%. - Tumor continuously involves 92% of 1 of 1 tissue core. B. Prostate, Left Lateral [place] Biopsy: - Prostatic acinar adenocarcinoma (conventional type), grade group 2 (Martina score 3+4=7). - Percentage pattern 4: 5%. - Tumor continuously involves 80% of 1 of 1 tissue core. C. Prostate, Left Middle Middle Biopsy: - Prostatic acinar adenocarcinoma (conventional type), grade group 2 (Martina score 3+4=7). - Percentage pattern 4: 5%. - Tumor continuously involves 85% of overall tissue, present in 2 of 2 tissue cores. D. Prostate, Left Lateral Middle Biopsy: - Prostatic acinar adenocarcinoma (conventional type), grade group 2 (Martina score 3+4=7). - Percentage pattern 4: 5%. - Tumor continuously involves 98% of 1 of 1 tissue core. E. Prostate, Left Middle Base Biopsy: - Prostatic acinar adenocarcinoma (conventional type), grade group 2 ([place] score 3+4=7). - Percentage pattern 4: 5%. - Tumor continuously involves 88% of 1 of 1 tissue core. F. Prostate, Left Lateral Base Biopsy: - Prostatic acinar adenocarcinoma (conventional type), grade group 3 ([place] score 4+3=7). - Percentage pattern 4: 70%. - Tumor continuously involves 45% of 1 of 1 tissue core. G. Prostate, Right Middle [place] Biopsy: - Benign prostatic tissue. H. Prostate, Right Lateral [place] Biopsy: - Benign prostatic tissue. I. Prostate, Right Middle Middle Biopsy: - Benign prostatic tissue. J. Prostate, Right Lateral Middle Biopsy: - Benign prostatic tissue. K. Prostate, Right Middle Base Biopsy: - Benign prostatic tissue. L. Prostate, Right Lateral Base Biopsy: - Benign prostatic tissue. 06/28/2025 10:28 AM EDT [facility] at 1028 EDT Clinical Information Elevated PSA = 10.2 (05/2025) [id number] 06/28/2025 10:28 AM EDT [facility] Gross Description A. Prostate, Left Middle [place] Biopsy: Received, properly labeled, are two H and E stained slides and two unstained slides. B. Prostate, Left Lateral [place] Biopsy: Received, properly labeled, are two H and E stained slides and two unstained slides. C. Prostate, Left Middle Middle Biopsy: Received, properly labeled, are two H and E stained slides and two unstained slides. D. Prostate, Left Lateral Middle Biopsy: Received, properly labeled, are two H and E stained slides and two unstained slides. E. Prostate, Left Middle Base Biopsy: Received, properly labeled, are two H and E stained slides and two unstained slides. F. Prostate, Left Lateral Base Biopsy: Received, properly labeled, are two H and E stained slides and two unstained slides. G. Prostate, Right Middle [place] Biopsy: Received, properly labeled, are two H and E stained slides and two unstained slides. H. Prostate, Right Lateral [place] Biopsy: Received, properly labeled, are two H and E stained slides and two unstained slides. I. Prostate, Right Middle Middle Biopsy: Received, properly labeled, are two H and E stained slides and two unstained slides. J. Prostate, Right Lateral Middle Biopsy: Received, properly labeled, are two H and E stained slides and two unstained slides. K. Prostate, Right Middle Base Biopsy: Received, properly labeled, are two H and E stained slides and two unstained slides. L. Prostate, Right Lateral Base Biopsy: Received, properly labeled, are two H and E stained slides and two unstained slides. /rc 06/28/2025 10:28 AM EDT [facility] Disclaimer Unless otherwise specified, all tissue is 10% NB formalin fixed and paraffin embedded. Technical pathology services provided by [facility] at [address], [place] [address] (CLIA #[id number]/Elizabeth Houston MD, Cleaning Technician) 06/28/2025 10:28 AM EDT [facility] Tissue Prostate / Unknown 06/20/20252024 12:16 PM EDT Tissue specimen (specimen) Prostate / Unknown 06/20/2025 06/21/2025 12 :16 PM EDT Tissue specimen (specimen) Prostate / Unknown 06/20/2025 06/21/2025 12 :16 PM EDT Tissue specimen (specimen) Prostate / Unknown 06/20/2025 06/21/2025 12 :16 PM EDT Tissue specimen (specimen) Prostate / Unknown 06/20/2025 06/21/2025 12 :16 PM EDT Tissue specimen (specimen) Prostate / Unknown 06/20/2025 06/21/2025 12 :16 PM EDT Tissue specimen (specimen) Prostate / Unknown 06/20/2025 06/21/2025 12 :16 PM EDT Tissue specimen (specimen) Prostate / Unknown 06/20/2025 06/21/2025 12 :16 PM EDT Tissue specimen (specimen) Prostate / Unknown 06/20/2025 06/21/2025 12 :16 PM EDT Tissue specimen (specimen) Prostate / Unknown 06/20/2025 06/21/2025 12 :16 PM EDT Tissue specimen (specimen) Prostate / Unknown 06/20/2025 06/21/2025 12 :16 PM EDT Tissue specimen (specimen) Prostate / Unknown 06/20/2025 06/21/2025 12 :16 PM EDT us Manpreet Tellez MD LAB PATHOLOGY ORDERABLES Fi nal Result [facility] [address] [place] [address], documented in this encounter Visit Diagnoses Diagnosis Elevated prostate specific antigen (PSA) documented in this encounter Additional Health Concerns Assessment Noted Time PHQ-9 Depression Total Score: 0 04/14/20 25 1:42 PM EDT A fall risk assessment has been complete d for the patient 04/14/2025 1:39 PM EDT documented as of this encounter Care Teams Overnight Babysitter Relationship Specialty Start Date End Date Alexys, Namrata, MD [address] [place] [address] PCP - General Internal Medicine 07/18/24 documented as of this encounter
--- OUTSIDE RECORDS SUMMARY | 2025-07-31 00:43 | XMS_ITS | Encounter Summary ---
Author Organization [facility] [place], Address [address] [place] [address] Phone Care Team Providers Care Business Dean Name Role Phone Namrata Reardon MD Primary Care Provider [phone] Encounter Details Date Type Department Care Team (Late st Contact Info) Description 03/18/2022 Documentation Only [facility] [address] [place] [address] Jaswant Cheung MD [address] [place] [address] [place] [address] Social History Tobacco Use Types Packs/Day Years Used Date Smoking Tobacco: Never Smokeless Tobacco: Never Sex and Gender Information Value Date Recorded Sex Assigned at Not on file Legal Sex Male 4:37 PM EST Gender Identity Not on file Sexual Orientation Not on file documented as of this encounter Functional Status documented as of this encounter Plan of Treatment Upcoming Encounters Date Type Department Care Team (Late st Contact Info) Description 08/30/2025 5:50 PM EST Office Visit [facility] [address] [facility] [place] [address] Jaswant Cheung MD [address] [place] [address] [place] [phone] documented as of this encounter Visit Diagnoses Not on filedocumented in this encounter Care Teams Business Dean Relationship Specialty Start Date End Date Namrata Reardon MD PCP - General Internal Medicine 04/26/24 documented as of this encounter
--- OUTSIDE RECORDS SUMMARY | 2025-07-31 00:44 | XMS_ITS ---
Author Name [facility] Organization Unknown Results Test Name/Text Value Interpretation Date Range Source LMWH PPP Action Finisher-aCnc 0.49 IU/mL Normal 04/24/2024 CCT Anticoagulant IV HEPARIN, UNFRACTIONATED Normal 04/24/2024 [facility] POC Glucose 112.0 mg/dL Above high normal 04/24/2024 65 - 99 [facility] POC Glucose 113.0 mg/dL Above high normal 04/24/2024 65 - 99 [facility] POC Glucose 164.0 mg/dL Above high normal 04/23/2024 65 - 99 [facility] LMWH PPP Action Finisher-aCnc 0.48 IU/mL Normal 04/23/2024 CCT Anticoagulant IV HEPARIN, UNFRACTIONATED Normal 04/23/2024 CCT POC Glucose 134.0 mg/dL Above high normal 04/23/2024 65 - 99 [facility] LMWH PPP Action Finisher-aCnc 0.35 IU/mL Normal 04/23/2024 CCT Anticoagulant HEPARIN, LOW MOLECULAR WEIGHT Normal 04/23/2024 [facility] Amphetamines Ur Ql Negative Normal 04/23/2024 - [facility] Benzodiaz Ur Ql Scn>200 ng/mL Negative Normal 04/23/2024 - [facility] PCP Ur Ql Scn>25 ng/mL Negative Normal 04/23/2024 - [facility] Buprenorphine Ur Ql Negative Normal 04/23/2024 - [facility] Methadone Ur Ql Scn>300 ng/mL Negative Normal 04/23/2024 - [facility] Cannabinoids Ur Ql Scn>50 ng/mL Negative Normal 04/23/2024 - [facility] fentaNYL+Norfentany l Ur Ql Scn Negative Normal 04/23/2024 - [facility] Oxycodone Ur Ql Scn Negative Normal 04/23/2024 - [facility] Tricyclics Ur Ql Scn Negative Normal 04/23/2024 - [facility] Ethanol Ur-mCnc Negative Normal 04/23/2024 - [facility] CT Barbiturates Ur Ql Scn>200 ng/mL Negative Normal 04/23/2024 - [facility] Opiates Ur Ql Scn>300 ng/mL Negative Normal 04/23/2024 - [facility] BZE Ur Ql Negative Normal 04/23/2024 - [facility] HDLc SerPl-mCnc 61.0 mg/dL Normal 04/23/2024 39 - HH CCT LDLc SerPl Calc-mCnc 68.0 mg/dL Normal 04/23/2024 - 130 [facility] Cholest SerPl-mCnc 139.0 mg/dL Normal 04/23/2024 - 200 [facility] HDLc SerPl 2.3 Ratio Normal 04/23/2024 0 - 5 [facility] Trigl SerPl-mCnc 50.0 mg/dL Normal 04/23/2024 - 150 H [facility] Magnesium SerPl-mCnc 1.9 mg/dL Normal 04/23/2024 1.6 - 2.7 [facility] Chloride SerPl-sCnc 101.0 mmol/L Normal 04/23/2024 98 - 1 07 [facility] Potassium SerPl-sCnc 3.5 mmol/L Normal 04/23/2024 3.4 - 5.3 [facility] GFR/BSA.pred SerPlBld FQZ-KYT-XxOLbp 79.0 Normal 04/23/2024 59 - [facility] Glucose SerPl-mCnc 97.0 mg/dL Normal 04/23/2024 65 - 99 [facility] Anion Gap Bld-sCnc 14.0 Normal 04/23/2024 7 - 17 [facility] Sodium SerPl-sCnc 138.0 mmol/L Normal 04/23/2024 136 - 14 5 [facility] Creat SerPl-mCnc 1.0 mg/dL Normal 04/23/2024 0.5 - 1.3 HH CCT BUN/Creat SerPl 17.0 Ratio Normal 04/23/2024 10 - 25 HH CCT BUN SerPl-mCnc 17.0 mg/dL Normal 04/23/2024 8 - [address] CO2 SerPl-sCnc 23.0 mmol/L Normal 04/23/2024 22 - 33 HH CCT Calcium SerPl-mCnc 9.0 mg/dL Normal 04/23/2024 8.7 - 10.5 [facility] Hgb A1c MFr Bld 5.6 % Normal 04/23/2024 - 5.[address] Est. average glucose Bld gHb Est-mCnc 114.0 mg/dL Normal 04/23/2024 [facility] WBC num Bld Auto 7.0 Thou/uL Normal 04/23/2024 4 - 11 [facility] Hct VFr Bld Auto 41.6 % Normal 04/23/2024 39 - 54 HH CCT PMV Bld Auto 11.3 fL Normal 04/23/2024 7.5 - 12.5 [facility] MCHC RBC Auto-mCnc 32.2 g/dL Normal 04/23/2024 30 - 36 [facility] RDW RBC Auto-Rto 14.4 % Normal 04/23/2024 11.5 - 14.5 [facility] Hgb Bld-mCnc 13.4 g/dL Normal 04/23/2024 13 - 17.7 [facility] Platelet num Bld Auto 180.0 Thou/uL Normal 04/23/2024 150 - 450 [facility] MCV RBC Auto 93.0 fL Normal 04/23/2024 80 - 100 [facility] MCH RBC Qn Auto 30.0 pg Normal 04/23/2024 27 - [address] RBC num Bld Auto 4.47 Mil/uL Below low normal 04/23/2024 4.5 - 6.2 [facility] POC Glucose 101.0 mg/dL Above high normal 04/23/2024 65 - 99 [facility] POC Glucose 103.0 mg/dL Above high normal 04/23/2024 65 - 99 [facility] Bilirub SerPl-mCnc 0.6 mg/dL Normal 04/23/2024 0.2 - 1 [facility] Globulin Ser Calc-mCnc 3.7 g/dL Normal 04/23/2024 1.5 - 3.9 H[facility]CT Potassium SerPl-sCnc 3.5 mmol/L Normal 04/23/2024 3.4 - 5.3 [facility] BUN/Creat SerPl 19.0 Ratio Normal 04/23/2024 10 - 25 HH CCT Anion Gap Bld-sCnc 13.0 Normal 04/23/2024 7 - 17 [facility] Sodium SerPl-sCnc 139.0 mmol/L Normal 04/23/2024 136 - 14 5 [facility] CO2 SerPl-sCnc 23.0 mmol/L Normal 04/23/2024 22 - 33 HH CCT Calcium SerPl-mCnc 9.0 mg/dL Normal 04/23/2024 8.7 - 10.5 H[facility]CT Creat SerPl-mCnc 1.1 mg/dL Normal 04/23/2024 0.5 - 1.3 HH CCT Prot SerPl-mCnc 7.7 g/dL Normal 04/23/2024 6.3 - 8.[address] ALT SerPl-cCnc 21.0 U/L Normal 04/23/2024 10 - 55 [facility] T Albumin SerPl-mCnc 4.0 g/dL Normal 04/23/2024 3.4 - 4.8 [facility]CT Chloride SerPl-sCnc 103.0 mmol/L Normal 04/23/2024 98 - 1 07 H[facility]CT AST SerPl-cCnc 27.0 U/L Normal 04/23/2024 10 - 55 [facility] T ALP SerPl-cCnc 79.0 U/L Normal 04/23/2024 45 - 128 [facility] T BUN SerPl-mCnc 21.0 mg/dL Normal 04/23/2024 8 - [address] Glucose SerPl-mCnc 98.0 mg/dL Normal 04/23/2024 65 - 99 [facility] GFR/BSA.pred SerPlBld FAL-QTF-LoBGas 70.0 Normal 04/23/2024 59 - H[facility]CT Albumin/Glob SerPl 1.1 Ratio Normal 04/23/2024 1 - 3 [facility] Hgb Bld-mCnc 13.8 g/dL Normal 04/23/2024 13 - 17.7 [facility] Neutrophils num Bld Auto 4.2 Thou/uL Normal 04/23/2024 2 - 7.5 [facility] Eosinophil/leuk NFr Bld Auto 0.5 % Normal 04/23/2024 [facility] Lymphocytes num Bld Auto 2.27 Thou/uL Normal 04/23/2024 1.5 - 4.5 [facility] Basophils/leuk NFr Bld Auto 0.5 % Normal 04/23/2024 [facility] Imm Granulocytes num Bld Auto 0.02 Thou/uL Normal 04/23/2024 0 - 0.1 [facility]CT Hct VFr Bld Auto 42.4 % Normal 04/23/2024 39 - 54 HH CCT PMV Bld Auto 12.0 fL Normal 04/23/2024 7.5 - 12.5 [facility] Basophils num Bld Auto 0.04 Thou/uL Normal 04/23/2024 0 - 0.2 [facility]CT Lymphocytes/leuk NFr Bld Auto 30.9 % Normal 04/23/2024 [facility] Platelet num Bld Auto 181.0 Thou/uL Normal 04/23/2024 150 - 450 [facility] Monocytes/leuk NFr Bld Auto 10.5 % Normal 04/23/2024 [facility] Imm Granulocytes/leuk NFr Bld Auto 0.3 % Normal 04/23/2024 [facility] MCV RBC Auto 92.0 fL Normal 04/23/2024 80 - 100 [facility] MCHC RBC Auto-mCnc 32.5 g/dL Normal 04/23/2024 30 - 36 [facility] RBC num Bld Auto 4.59 Mil/uL Normal 04/23/2024 4.5 - 6.2 H[facility] Eosinophil num Bld Auto 0.04 Thou/uL Normal 04/23/2024 0 - 0.7 [facility] Neutrophils/leuk NFr Bld Auto 57.3 % Normal 04/23/2024 H[facility] MCH RBC Qn Auto 30.1 pg Normal 04/23/2024 27 - [address] WBC num Bld Auto 7.3 Thou/uL Normal 04/23/2024 4 - 11 [facility] RDW RBC Auto-Rto 14.7 % Above high normal 04/23/2024 11.5 - 14.5 [facility] Monocytes num Bld Auto 0.77 Thou/uL Normal 04/23/2024 0.2 - 1.5 [facility] Prothrombin time 13.8 seconds Above high normal 04/23/2024 1 0 - 13.5 HHC[facility] INR PPP 1.2 Normal 04/23/2024 H[facility] Anticoagulant OTHER AGENT OR UNKNOWN Normal 04/23/2024 [facility] POC Glucose 94.0 mg/dL Normal 04/23/2024 65 - 99 [facility] Encounters Encounter Type Encounter Reason Primary Diagnosis Location Date Inpatient Cerebral infarction, unspecified Cerebral infarction, unspecified [facility] 04/22/2024 Care Team Organization Name Specialty Phone Email Start Date End Da joann [facility] 05/03/2025 [facility] 04/23/2024 11/30/2024 [facility] 04/23/2024 [facility] 04/23/2024
--- OUTSIDE RECORDS SUMMARY | 2025-07-31 00:44 | XMS_ITS | Clinical Summary ---
Author Organization [facility], Address [address] [place] [address] Phone Care Team Providers Care Pipe Organ Mechanic Apprentice Name Role Phone Namrata Reardon MD Primary Care Provider [phone] Allergies No known active allergies Medications atenolol (TENORMIN) 25 MG tablet Take 25 mg by mouth 1 (one) time each day 6 Active ergocalciferol (VITAMIN D-2) 1.25 MG (12310 UT) capsule Vitamin D2 1,250 mcg (50,000 unit) capsule Active atorvastatin (LIPITOR) 10 MG tablet Take 10 mg by mouth 1 (one) time each day 2 Active valsartan (DIOVAN) 320 MG tablet TAKE 1 TABLET BY MOUTH 1 TIME EACH DAY. 90 tablet 3 4 Active amLODIPine (NORVASC) 10 MG tablet TAKE 1 TABLET BY MOUTH 1 TIME EACH DAY. 90 tablet 3 5 Active fluticasone (FLONASE) 50 MCG/ACT nasal spray Administer 1 spray into each nostril 1 (one) time each day 16 g 12 5 03/01/20 26 Active hydroCHLOROthia zide 12.5 MG tablet Take 1 tablet (12.5 mg total) by mouth 1 (one) time each day 90 tablet 3 5 03/01/20 26 Active Diclofenac Sodium 3 % gel Apply 1 Dose topically in the morning and 1 Dose in the evening. 30 g 1 5 Active Eliquis 5 MG tablet TAKE 1 TABLET BY MOUTH EVERY MORNING & TAKE 1 TABLET EVERY EVENING 60 tablet 23 5 Active Active Problems Problem Noted Date Diagnosed Date Aortic valve regurgitation 11/14/2020 Stage 3a chronic kidney disease 12/15/2019 Overview (09/17/2020): Update for Diagnosis Load Hypercholesterolemia 12/15/2019 Resolved Problems Problem Noted Date Diagnosed Date Resolved Date Chronic kidney disease stage 2 11/14/2020 11/28/2020 Hypertensive disorder 01/01/20112022 Encounters Date Type Department Care Team Description 06/21/2025 Refill [facility] [address] [place] [address] Jaswant Cheung MD 06/02/2025 Refill [facility] [address] [place] [address] Jaswant Cheung MD 06/01/2025 Refill [facility] [address] [place] [address] Jaswant Cheung MD 05/26/2025 Refill [facility] [address] [place] [address] Hailey Gillespie MA 05/26/2025 Documentation Only [facility] [address] [place] [address] Hailey Gillespie MA 05/24/2025 4:10 PM EDT Office Visit [facility] [address] [place] [address] Jaswant Cheung MD Stage 3a chronic kidney disease (HCC) (Primary Dx) 05/24/2025 Refill [facility] [address] [place] [address] Jaswant Cheung MD from Last 3 Months Immunizations Immunization Administration Dates Next Due Tdap 04/20/2013 Family [...] Visit [facility] [place], [address] [place] [phone] Jaswant Cheung MD [address] [place] [address] [place] [id number] Health Maintenance Due Date Last Done Comments Pneumococcal Vaccine: 50+ Ye ars (1 of 2 - PCV) 1969 Colorectal Cancer Screening: Annual FOBT 1999 Colorectal Cancer Screening: Colonoscopy 1999 Colorectal Cancer Screening: Sigmoidoscopy 1999 Influenza Vaccine (#1) 2025 Hepatitis B Vaccine Aged Out No longe r eligible based on patient's age to complete this topic Procedures Procedure Name Priority Date/Time Associated Diagnosis Comments BASIC METABOLIC PANEL Routine 05/18/2025 8:54 AM EDT Stage 3a chronic kidney disease (HCC) URINE ALBUMIN / CREATININE RATIO Routine 05/18/2025 8:54 AM EDT Stage 3a chronic kidney disease (HCC) from Last 3 Months Results * Urine Albumin / Creatinine Ratio (05/18/2025 8:54 AM EDT) Creatinine, Ur 125.6 Not Estab. mg/dL [facility] Albumin, Urine 27.8 Not Estab. ug/mL [facility] Albumin/Creatin ine Ratio 22 0 - 29 mg/g creat [facility] Comment: Normal: 0 - 29 Moderately increased: 30 - 300 Severely increased: >300 Urine Urine specimen obtained by clean catch procedure / Unknown 05/18/2025 8:54 AM EDT 05/18/2025 us Jaswant Cheung MD LAB URINE ORDERABLES Final Re sult [facility] [address] [place] [address] * (ABNORMAL) Basic Metabolic Panel (05/18/2025 8:54 AM EDT) Glucose 105(H) 70 - 99 mg/dL [facility] BUN 18 8 - 27 mg/dL [facility] Creatinine 1.28(H) 0.76 - 1.27 mg/dL [facility] eGFR CKD-EPI CR 2020 58(L) >59 mL/min/1.7 3 [facility] BUN/Creatinine Ratio 14 10 - 24 [facility] Sodium 138 134 - 144 mmol/L [facility] Potassium 4.3 3.5 - 5.2 mmol/L [facility] Chloride 99 96 - 106 mmol/L [facility] Bicarbonate (CO2) 21 20 - 29 mmol/L [facility] Calcium 9.7 8.6 - 10.2 mg/dL [facility] Blood Venous blood / Unknown 05/18/2025 8:54 AM EDT 05/18/2025 us Jaswant Cheung MD LAB BLOOD ORDERABLES Final Re sult [facility] [address] [place] [address] from Last 3 Months Insurance Medicare [facility] Care Teams Pipe Organ Mechanic Apprentice Relationship Specialty Start Date End Date Namrata Reardon MD PCP - General Internal Medicine 04/26/24
--- OUTSIDE RECORDS SUMMARY | 2025-07-31 00:44 | XMS_ITS | Clinical Summary ---
Author Organization [facility] Address [address] [place] [address] Care Team Providers Care Correctional Security Officer Name Role Phone Corey Herbert MD Primary Care Provider Unavailabl e Allergies No known active allergies Medications valsartan (DIOVAN) 320 MG tablet Take 1 tablet (320 mg total) by mouth daily. Active atenolol (TENORMIN) 25 MG tablet Take 1 tablet (25 mg total) by mouth daily. Active atorvastatin (LIPITOR) 10 MG tablet Take 1 tablet (10 mg total) by mouth daily. Active amLODIPine (NORVASC) 10 MG tablet Take 1 tablet (10 mg total) by mouth daily. Active hydroCHLOROthiaz carly (HYDRODIURIL) 12.5 MG tablet Take 1 tablet (12.5 mg total) by mouth daily. Take 12.5 mg on MWF Active apixaban (ELIQUIS) 5 MG tabletIndication s:CVA (cerebral vascular accident) (HCC) Take 1 tablet [...] Assigned at Male 04/22/2024 11:20 PM EDT Legal Sex Male 10:32 PM EDT Gender Identity Male 04/22/2024 11:20 PM EDT Sexual Orientation Heterosexual (straight) 04/22 11:20 PM EDT Last Filed Vital Signs Vital Sign Reading Time Taken Comments Blood Pressure 172/78 04/24/2024 8:18 AM EDT Pulse 81 04/24/2024 8:18 AM EDT Temperature 36.2 C (97.2 F) 04/24/2024 8:18 AM EDT Respiratory Rate 16 04/24/2024 8:18 AM EDT Oxygen Saturation 98% 04/24/2024 8:18 AM EDT Inhaled Oxygen Concentration - - Weight 82.2 kg (181 lb 3.5 oz) 04/23/2024 1:00 A M EDT Height 170.2 cm (5' 7.01 ) 04/23/2024 1:00 AM ED T Body Mass Index 28.38 04/23/2024 1:00 AM EDT Plan of Treatment Health Maintenance Due Date Last Done Comments Advance Care Planning 1950 Hepatitis C Virus Screening 1950 DTaP/Tdap/Td Vaccines (1 - Tdap) 1969 Colonoscopy 1995 Pneumococcal Vaccines 50+ (1 of 1 - PCV) 2000 Zoster (Shingles) Vaccine (1 of 2) 2000 RSV Vaccine 50 years and old er and Patients (1 - 1-dose 75+ series) 2025 Influenza Vaccine 04/14/2025 COVID-19 Vaccine ( - 2023-2 5 season) 2025 Hepatitis B Vaccines Aged Out No long er eligible based on patient's [place] [id number] MEDICARE PART A & B [facility] Advance Directives * Full Code (Latest Code Status on File) Date Activated Date Inactivated Comments 04/22/2024 11:25 PM Care Teams Correctional Security Officer Relationship Specialty Start Date End Date Corey Herbert MD PCP - General 04/22/24
--- OUTSIDE RECORDS SUMMARY | 2025-07-31 00:44 | XMS_ITS | Encounter Summary ---
Author Organization [facility], Address [address] [place] [address] Phone Care Team Providers Care Electronic Die Maker Name Role Phone Namrata Reardon MD Primary Care Provider [phone] Encounter Details Date Type Department Care Team (Late st Contact Info) Description 05/26/2025 Documentation Only [facility] [address] [place] [address] [place] [address] [place] [phone] Social History Tobacco Use Types Packs/Day [...] Visit [facility] [address] [place] [address] Jaswant Cheung MD [address] [place] [address] [place] [address] documented as of this encounter Visit Diagnoses Not on filedocumented in this encounter Care Teams Electronic Die Maker Relationship Specialty Start Date End Date Namrata Reardon MD PCP - General Internal Medicine 04/26/24 documented as of this encounter
--- OUTSIDE RECORDS SUMMARY | 2025-07-31 00:44 | XMS_ITS | Clinical Summary ---
Author Organization [address] [place] [address] Address [address] [place] [address] Phone Care Team Providers Care Civil Engineering Technician Name Role Phone Namrata Reardon MD Primary Care Provider [phone] Allergies No known active allergies Medications apixaban (Eliquis) 5 mg tablet Take 5 mg by mouth 2 times daily. 4 Active valsartan (DIOVAN) 320 mg tablet Take 1 Tablet by mouth daily. Active hydroCHLOROthia zide 12.5 mg tablet Take 1 Tablet by mouth See Admin Instructions. Take M,W,F 4 Active triamcinolone (KENALOG) 0.025 % cream APPLY TO AFFECTED AREA TWICE A DAY 4 Active amLODIPine (NORVASC) 10 mg tablet TAKE 1 TABLET BY MOUTH EVERY DAY 3 Active atenoloL (TENORMIN) 25 mg tablet TAKE 1 TABLET BY MOUTH EVERY DAY 90 tablet 3 5 Active fluticasone propionate (FLONASE) 50 mcg/actuation nasal spray Administer 1 spray into affected nostril(s) 1 (one) time each day. 5 03/01/20 26 Active atorvastatin (LIPITOR) 10 mg tablet TAKE 1 TABLET BY MOUTH EVERY DAY 90 tablet 3 5 Active polyethylene glycol (Golytely) 236-22.74-6.74 -5.86 gram solution Take 4L by mouth once for one dose. May substitue any PEG. Starting at 2PM the day before your procedure drink 1 8oz glasses at your own pace until you complete half of the gallon. Finish 2nd half of the gallon at 8PM. 4000 mL 5 Active bisacodyL (DULCOLAX) 5 mg EC tablet Take 2 tablets by mouth right before beginning bowel prep. See instructions provided by the office 2 tablet 5 Active Active Problems Problem Noted Date Diagnosed Date Acute ischemic right MCA stroke ([facility] V24, [facility] V28) 12/01/2024 Atrial fibrillation ([facility] V24, [facility] V28) 0 06/01/2024 Overview (09/27/2024): Anticoagulated with apixaban Rate control strategy with atenolol Assessment & Plan (09/27/2024 12:09 PM EST): The patient denies any symptoms of palpitations. He has been tolerating his Eliquis without bleeding issues. He has not had any falls. Continue rate control strategy with beta-phill. Continue anticoagulation with Eliquis. Right adrenal mass ([facility] V24) 09/12/2020 Overview (07/28/2024): Accidental finding on CT of the chest: small low-density right adrenal mass, most likely incidental adenoma. Dilation of aorta ([facility] V24) 07/08/2018 Overview (05/31/2025): - Most recent echo from April 2024 at [facility] showed low normal LV systolic function with EF of 53%, normal RV size and systolic function, moderate aortic insufficiency, normal aortic root size but no mention of ascending aortic size - Our most recent echocardiogram from July 2023 showed mild concentric LV hypertrophy with normal cavity size and systolic function, normal regional wall motion with an ejection fraction of 55 to 60%, normal RV size and systolic function, moderate left atrial enlargement, grade 2 diastolic dysfunction consistent with increased left atrial pressure, mild to moderate AI with possible bileaflet valve-difficult to determine, no aortic stenosis, mild mitral regurgitation, grossly normal aortic root size, poorly visualized ascending aorta, dilated transverse aorta at 3.8 cm - CT of the chest without contrast performed in 2021 showing the ascending aorta at 4.1 cm in the transverse plane, proximal arch at 3.7 cm-unchanged from previous CKD (chronic kidney disease) , stage III ([facility] V24, [facility] V28) 11/18/2013 Overview (07/28/2024): Dr Cheung Aortic regurgitation 10/25/2013 Overview (09/27/2024): Moderate on echocardiogram 04/2024 Assessment & Plan (09/27/2024 12:09 PM EST): The patient denies any symptoms referable to his AI. Continue periodic surveillance Chest wall deformity 04/20/2013 HTN (hypertension) 01/01/2011 Assessment & Plan (04/14/2025 4:14 PM EDT): Continue with amlodipine 10 mg, atenolol 25 mg, hydrochlorothiazide 12 5 mg 3 times a day, valsartan 320 mg. Patient follows with nephrology, getting refills from nephrology and cardiology. Orders: Comprehensive metabolic panel; Future CBC and differential; Future Assessment & Plan (09/27/2024 12:09 PM EST): Patient's blood pressure somewhat robust in office, but overall well-controlled on review of his home blood pressures. He also sees Dr. Cheung from nephrology who follows his hypertension. For now, continue calcium channel phill, beta- phill, thiazide diuretic and ARB. Pure hypercholesterolemia 01/01/2011 Assessment & Plan (04/14/2025 4:14 PM EDT): Continue with atorvastatin. Repeat lipid panel Orders: Lipid panel with reflex to direct LDL; Future Assessment & Plan (09/27/2024 12:09 PM EST): Well-controlled lipid profile on current dose statin. Continue Encounters Date Type Department Care Team Description 07/28/2025 9:45 AM EST Anesthesia Event [facility] [address] [place] [address] Erickson Villa MD 07/28/2025 8:46 AM EST Hospital Encounter [facility] [address] [place] [phone] Estrada Qiu MD Steele, Matthew G, CRNA Spencer, Mark A, MD Colon cancer screening 06/21/2025 Lab Requisition [facility] - Main Lab [address] [facility] [place] [phone] Manpreet Tellez MD Elevated prostate specific antigen (PSA) 05/31/2025 10:20 AM EDT Office Visit [facility] [address] [facility] [address] [place] [address] Krystle Parks MD Paroxysmal atrial fibrillation ([facility] V24, [facility] V28) (Primary Dx); Nonrheumatic aortic valve insufficiency; Dilation of aorta ([facility] V24) 05/05/2025 Telephone Adult [address] [phone] Karla Hamilton MA from Last 3 Months Immunizations Immunization Administration Dates Next Due Tdap Tetanus diptheria acell ular pertussis (Boostrix; Adacel) 7yo and older 04/20/2013 Surgical History Surgery Date Site/Laterality Comments COLONOSCOPY 12/09/10 PROCEDURE: HISTORICAL COLONOSCOPY; COMMENT: hemorrhoids; repeat in ten years UMBILICAL HERNIA REPAIR N/A Medical History Medical History Date Comments HTN (hypertension) 01/01/2011 DX:HTN (hyper tension) Pure hypercholesterolemia 01/01/2011 DX:Pur e hypercholesterolemia CKD (chronic kidney disease) stage 3, GFR 30-59 ml/min (CMS/HCC V24, [facility]/HCC V28) 01/01/2011 DX:CKD (chronic kidney disea se) stage 3, GFR 30-59 ml/min ([facility]) Aortic regurgitation 10/25/2013 DX:Aortic r egurgitation Atrial fibrillation ([facility] V24, [facility] V28) Family History Medical History Relation Name Comments Hypertension Father Hypertension Son Shayan Relation Name Status Comments Father Son Shayan Alive Social History Tobacco Use Types Packs/Day Years Used Date Smoking Tobacco: Never Passive Smoke Exposure: Never Smokeless Tobacco: Never Tobacco Cessation:Counseling Given: Not Answered Alcohol Use Standard Drinks/Week Comments Yes 0 [...] for your loved ones. For example, child and adolescent psychiatrist or elderly care for an older adult? [...] Mass Index 25.37 07/28/2025 9:26 AM EST Plan of Treatment Upcoming Encounters Date Type Department Care Team (Late st Contact Info) Description 08/25/2025 10:00 AM EST Office Visit Adult Medicine [address] [phone] Namrata Reardon MD [address] [place] [address] 05/28/2026 2:30 PM EDT Ancillary Procedure [facility] [address] [facility] [address] [place] [address] Health Maintenance Due Date Last Done Comments COVID-19 Vaccine (#1) 1955 Zoster Vaccines (1 of 2) 1969 DTaP,Tdap,and Td Vaccines (2 - Td or Tdap) 04/20/2023 04/20/2013 RSV Immunization Adult Patients (1 - 1-dose 75+ series) 2025 Influenza Vaccine (#1) 2025 Pneumococcal Vaccine: 50+ Years (1 of 2 - PCV) 04/13/2026 Postponed from 1969 (Patient Refused) Medicare Annual Wellness Visit 04/14/2026 04/14/2025 Social Influencers of Health Screening 04/14/2026 04/14/2025 Hypertension/CHF/CAD Annual BMP Blood Test 05/18/2026 05/18/2025, 04/14/2025, 09/15/2024, Additional history exists Falls Risk Assessment 07/28/2026 07/28/2025 , 04/14/2025, 08/27/2018 Cholesterol Screening (Lipid Panel) 04/14/2030 04/14/2025, 08/24/2024, 04/23/2024, Additional history exists Colorectal Cancer Screening: Colonoscopy 07/28/2035 07/28/2025, 12/09/2010, 12/09/2010 Hepatitis C Screening Completed 10/18/2013 Depression Screening Completed 04/14/2025, 08/27/20 18 HIB Vaccines Aged Out No longer eligi [...] patient's age to complete this topic Meningococcal B Vaccine Aged Out No l onger eligible based on patient's age to complete this topic RSV Immunization Patients Under 20 months Aged Out No longer eligible based on patient's age to complete this topic Varicella Vaccines Aged Out No longer eligible based on patient's age to complete this topic Goals Goal Patient Goal Type Associated Problems Recent Progress Patient-Stated? Author Autogenerat ed Goal Care Plan Autogenerated Problem No Emiliana Bedolla Procedures Procedure Name Priority Date/Time Associated Diagnosis Comments COLONOSCOPY Routine 07/28/2025 10:10 AM EST Colon cancer screening TISSUE EXAM Routine 06/20/2025 Elevated prostate specific antigen (PSA) ECG 12-LEAD Routine 05/31/2025 9:57 AM EDT Paroxysmal atrial fibrillation (CMS/HCC V24, CMS/HCC V28) COMPREHENSIVE METABOLIC PANEL Routine 04/14/2025 2:44 PM EDT Primary hypertension LIPID PANEL WITH REFLEX TO DIRECT LDL Routine 04/14/2025 2:44 PM EDT Pure hypercholesterolemia DEPRESSION SCREENING Routine 08/27/2018 FALLS RISK ASSESSMENT Routine 08/27/2018 HEPATITIS C SCREENING Routine 10/18/2013 from Last 3 Months or Most Recently Relevant to Health Maintenance Results * COLONOSCOPY Anesthesia - MAC; [facility] END[facility]COPY (07/28/2025 10:10 AM EST) Anatomical Region Laterality Modality Endoscopy 07/28/2025 9:56 AM EST Impressions 07/28/2025 10:20 AM EST - One 10 mm polyp in the transverse colon, removed using injection-lift and a hot snare. Resected and retrieved. - Internal hemorrhoids. Recommendation: - Await pathology results. - Repeat colonoscopy in 5 years for surveillance. Narrative 07/28/2025 10:20 AM EST [facility] Patient Name: Andrea Orona Procedure Date: 07/28/2025 9:56 AM Date of [...] verified by the physician, the nurse, the human resources benefits manager and the tire maintenance technician in the pre-procedure area in the [...] reduce spontaneously). Procedure Code(s): --- Professional --- 01202, Colonoscopy, flexible; with removal of tumor(s), polyp(s), or other lesion(s) by snare technique [id number], Colonoscopy, flexible; with directed submucosal injection(s), any substance Diagnosis Code(s): --- Professional --- D12.3, Benign neoplasm of transverse colon (hepatic flexure or splenic flexure) CPT copyright 2020 [employer]. All rights reserved. The codes documented in this report are preliminary and upon bonus clerk review may be revised to meet current compliance requirements. Estrada Qiu MD 07/28/2025 10:20:19 AM This report has been signed electronically.Estrada Qiu MD Number of Addenda: 0 Note Initiated On: 07/28/2025 9:56 AM Scope Withdrawal Time: 0 hours 8 minutes 42 seconds Scope In: 10:01:18 AM Scope Out: 10:12:53 AM Endoscopy Department at [facility] - [address] [place] [phone] Procedure Note Estrada Qiu MD - 07/28/2025 [facility] Patient Name: Andrea Orona Procedure Date: 07/28/2025 9:56 AM Date of [...] the physician, the nurse, theanesthetist and the tire maintenance technician in the pre-procedure area in the [...] reduce spontaneously). Procedure Code(s): --- Professional --- 61048, Colonoscopy, flexible; with removal of tumor(s), polyp(s), or other lesion(s) by snare technique 45687, Colonoscopy, flexible; with directedsubmucosal injection(s), any substance Diagnosis Code(s): --- Professional --- D12.3, Benign neoplasm of transverse colon (hepatic flexure or splenic flexure) CPT copyright 2020 [employer]. All rights reserved. The codes documented in this report are preliminary and upon bonus clerk reviewmay be revised to meet current compliance requirements. Estrada Qiu MD 07/28/2025 10:20:19 AM This report has been signed electronically.Estrada Qiu MD Number of Addenda: 0 Note Initiated On: 07/28/2025 9:56 AM Scope Withdrawal Time: 0 hours 8 minutes 42 seconds Scope In: 10:01:18 AM Scope Out: 10:12:53 AM Endoscopy Department at [facility] - [address] [place] [phone] IMPRESSION: - One 10 mm polyp in the transverse colon, removed using injection-lift and a hot snare. Resected and retrieved. - Internal hemorrhoids. Recommendation: - Await pathology results. - Repeat colonoscopy in 5 years for surveillance. us Estrada Qiu MD GI~PROCEDURE ORDERABLES Fin al Result * Tissue Exam (06/20/2025) Final Diagnosis A. Prostate, Left [place] Biopsy: - Prostatic acinar adenocarcinoma (conventional type), grade group 2 (Garfield score 3+4=7). - Percentage pattern 4: 5%. - Tumor continuously involves 92% of 1 of 1 tissue core. B. Prostate, Left Lateral [place] Biopsy: - Prostatic acinar adenocarcinoma (conventional type), [...] acinar adenocarcinoma (conventional type), grade group 2 (Garfield score 3+4=7). - Percentage pattern 4: 5%. [...] acinar adenocarcinoma (conventional type), grade group 3 (Martina score 4+3=7). - Percentage pattern 4: 70%. - Tumor continuously involves 45% of 1 of 1 tissue core. G. Prostate, Right [place] Biopsy: - Benign prostatic tissue. H. Prostate, Right Lateral [place] Biopsy: - Benign prostatic tissue. I. Prostate, Right Middle Middle Biopsy: - Benign prostatic tissue. J. Prostate, Right Lateral Middle Biopsy: - Benign prostatic tissue. K. Prostate, Right Middle [place] Biopsy: - Benign prostatic tissue. L. Prostate, Right Lateral Base Biopsy: - Benign prostatic tissue. 06/28/2025 10:[address] [facility] at 1028 EDT Clinical Information Elevated PSA = 10.2 (05/2025) [id number] 06/28/2025 10:28 AM T [facility] Gross Description A. Prostate, Left [place] Biopsy: Received, properly labeled, are two H and E stained slides and two unstained slides. B. Prostate, Left Lateral [place] Biopsy: Received, properly labeled, are two H [...] two unstained slides. G. Prostate, Right [place] Biopsy: Received, properly labeled, are two H and E stained slides and two unstained slides. H. Prostate, Right Lateral [place] Biopsy: Received, properly labeled, are two H [...] two unstained slides. /rc 06/28/2025 10:28 AM T [facility] Disclaimer Unless otherwise specified, all tissue is 10% NB formalin fixed and paraffin embedded. Technical pathology services provided by [facility] at [address] [place] [address] [address], [place] [address] (CLIA #[id number]/Elizabeth Houston MD, Audit Tech) 06/28/2025 10:28 AM [facility] Tissue Prostate / Unknown 06/20/20252024 [...] MD LAB PATHOLOGY ORDERABLES Fi nal Result [facility] [address] [place] [address], * ECG 12 lead (05/31/2025 9:57 AM EDT) Ventricular Rate ECG 78 BPM GEMUSE Atrial Rate 84 BPM GEMUSE QRS Duration 82 ms GEMUSE Q-T Interval 392 ms GEMUSE QTc 446 ms GEMUSE R Cal[place] -18 degrees GEMUSE T [place] 62 degrees GEMUSE ECG Interpretation Atrial fibrillation No previous ECGs available Confirmed by KRYSTLE PARKS ([id number]) on 05/31/2025 12:22:45 PM GEMUSE 05/31/2025 9:57 AM EDT 05/31/2025 12:22 PM EDT us Krystle Parks MD ECG ORDERABLES Final Result Performing Organization Address [facility]/ZIP Co de Phone Number GEMUSE * Lipid panel with reflex to direct LDL (04/14/2025 2:44 PM EDT) Cholesterol 146 0 - 200 mg/dL LAB CHEMISTRY METHOD 04/14/2025 7:16 PM EDT [facility] Triglycerides 64 0 - 150 mg/dL LAB CHEMISTRY METHOD 04/14/2025 7:16 PM EDT [facility] HDL 68 >=40 mg/dL LAB CHEMISTRY METHOD 04/14/2025 7:16 PM EDT [facility] LDL Calculated 65 0 - 100 mg/dL LAB CHEMISTRY METHOD 04/14/2025 7:16 PM EDT [facility] VLDL Cholesterol Blake 12.8 mg/dL LAB CHEMISTRY METHOD 04/14/2025 7:16 PM EDT [facility] Non HDL Chol. (LDL+VLDL) 78 <145 mg/dL LAB CHEMISTRY METHOD 04/14/2025 7:16 PM EDT [facility] Chol/HDL Ratio 2.1 0.0 - 4.4 LAB CHEMISTRY METHOD 04/14/2025 7:16 PM EDT [facility] Blood Venous blood specimen / Unknown Venipuncture / Unknown 04/14/2025 2:44 PM EDT 04/14/2025 2:44 PM EDT Namrata Reardon MD LAB BLOOD ORDERABLES Final Resul t [facility] [address] [place] [address], [place] [phone] * (ABNORMAL) Comprehensive metabolic panel (04/14/2025 2:44 PM EDT) Sodium 137 133 - 145 mmol/L LAB CHEMISTRY METHOD 04/14/2025 7:16 PM [facility] Potassium 3.9 3.5 - 5.5 mmol/L LAB CHEMISTRY METHOD 04/14/2025 7:16 PM [facility] Chloride 102 96 - 110 mmol/L LAB CHEMISTRY METHOD 04/14/2025 7:16 PM [facility] CO2 30 21 - 32 mmol/L LAB CHEMISTRY METHOD 04/14/2025 7:16 PM [facility] Anion Gap 5 3 - 11 LAB CHEMISTRY METHOD 04/14/2025 7:16 PM [facility] Glucose 85 70 - 100 mg/dL LAB CHEMISTRY METHOD 04/14/2025 7:16 PM [facility] BUN 23 5 - 25 mg/dL LAB CHEMISTRY METHOD 04/14/2025 7:16 PM [facility] Creatinine 1.28 0.70 - 1.30 mg/dL LAB CHEMISTRY METHOD 04/14/2025 7:16 PM [facility] eGFR 58(L) >=60 mL/min/1. 73m2 LAB CHEMISTRY METHOD 04/14/2025 7:16 PM [facility] Comment:Calculation based on the Chronic Kidney Disease Epidemiology Collaboration (CKD-EPI) equation refit without adjustment for race. BUN/Creatinine Ratio 18.0 LAB CHEMISTRY METHOD 04/14/2025 7:16 PM [facility] Calcium 9.6 8.5 - 10.5 mg/dL LAB CHEMISTRY METHOD 04/14/2025 7:16 PM [facility] AST (SGOT) 37 10 - 42 unit/L LAB CHEMISTRY METHOD 04/14/2025 7:16 PM [facility] ALT (SGPT) 47 10 - 60 unit/L LAB CHEMISTRY METHOD 04/14/2025 7:16 PM EDT [facility] Alkaline Phosphatase 90 42 - 121 unit/L LAB CHEMISTRY METHOD 04/14/2025 7:16 PM EDT [facility] Total Protein 8.4(H) 6.0 - 8.0 g/dL LAB CHEMISTRY METHOD 04/14/2025 7:16 PM EDT [facility] Albumin 4.2 3.2 - 5.0 g/dL LAB CHEMISTRY METHOD 04/14/2025 7:16 PM EDT [facility] Total Bilirubin 1.2 0.0 - 1.4 mg/dL LAB CHEMISTRY METHOD 04/14/2025 7:16 PM EDT [facility] Blood Venous blood specimen / Unknown Venipuncture / Unknown 04/14/2025 2:44 PM EDT 04/14/2025 2:44 PM EDT Namrata Reardon MD LAB BLOOD ORDERABLES Final Resul t [facility] [address] [place] [address], [place] [phone] * Falls Risk Assessment (08/27/2018) Pathologist [facility] Falls Risk Assessment Abstracted Historical Provider HEALTH MAINTENANCE Final Result * Depression Screening (08/27/2018) Pathologist [facility] Depression Screening Abstracted Historical Provider HEALTH MAINTENANCE Final Result * Hepatitis C Screening (10/18/2013) Pathologist [facility] Hepatitis C Screening Abstracted Historical Provider HEALTH MAINTENANCE Final Result from Last 3 Months or Most Recently Relevant to Health Maintenance Additional Health Concerns Active Problems Noted Date Diagnosed Date Autogenerated Problem 06/29/2025 Insurance MEDICARE [facility] Care Teams Civil Engineering Technician Relationship Specialty Start Date End Date Namrata Reardon MD [address] [place] [address] [place] [phone] PCP - General Internal Medicine 07/18/24
--- OUTSIDE RECORDS SUMMARY | 2025-07-31 00:44 | XMS_ITS | Encounter Summary ---
Author Organization [facility], Address [address] [place] [address] Phone Care Team Providers Care Account Development Specialist Name Role Phone Namrata Reardon MD Primary Care Provider [phone] Reason for Visit * Reason Comments Med Refill Encounter Details Date Type Department Care Team (Late Contact Info) Description 12/14/2020 Refill [facility] [address] [place] [id number] Jaswant Cheung MD [address] [place] [address] Social History Tobacco Use Types [...] Visit [facility], [address] [place] [phone] Jaswant Cheung MD [address] [place] [phone] documented as of this encounter Visit Diagnoses Not on filedocumented in this encounter Care Teams Account Development Specialist Relationship Specialty Start Date End Date Namrata Reardon MD PCP - General Internal Medicine 04/26/24 documented as of this encounter
[2025-07-31 00:46] LABS: MANUAL DIFF FLAG NO
[2025-07-31 00:51] VITALS: BP 143/78; PULSE 89; RESP 12; O2SAT 100
[2025-07-31] MEDS: Tranexamic Acid 1,000 MG in 0.9 % Sodium Chloride 250 ML 32.5 MG IV (00:51)
[2025-07-31 00:57] LABS: Hematocrit 36.1 % (42.0-52.0); Hemoglobin 11.5 g/dl (14.0-18.0); Imm Gran Abs Auto 0.03 X10*3/uL (0.00-0.03); Imm Gran Pct Auto 0.5 % (0.0-0.4); Lymphocytes Absolute Auto 2.7 X10*3/uL (1.2-4.9); Mean Corpuscular HGB Conc 31.9 g/dl (31.0-36.0); Mean Corpuscular Hemoglobin 30.6 pg (27.0-33.0); Mean Corpuscular Volume 96.0 fL (80.0-98.0); NRBC Abs Auto 0.000 X10*3/uL (0.0-0.012); NRBC Pct Auto 0.0 /100WBC (0.0-0.2); Platelet Count 174 X10*3/uL (160-400); Red Blood Count 3.76 X10*6/uL (4.60-5.80); White Blood Count 6.1 X10*3/uL (4.8-10.8)
[2025-07-31 01:16] LABS: Alanine Aminotransferase 54 U/L (0-40); Albumin Level 4.0 g/dL (3.5-5.0); Alkaline Phosphatase 81 U/L (39-117); Anion Gap 14 (12-20); Aspartate Amino Transferase 53 U/L (5-37); Blood Urea Nitrogen 28 mg/dL (9-16); Calcium 9.1 mg/dL (8.4-10.2); Carbon Dioxide 24 mmol/L (22-29); Chloride 110 mmol/L (96-108); Creatinine Clr Calc Pharmacy 51.0; Estimated Glomerular Filt Rate > 60; Potassium 3.8 mmol/L (3.3-5.1); Sodium 144 mmol/L (135-145); Total Protein 7.3 g/dL (6.5-8.0)
[2025-07-31 01:24] LABS: INTERNATIONAL NORM RATIO 1.3 (0.9-1.1); Prothrombin Time 15.3 SEC (11.2-13.5)
[2025-07-31 01:27] LABS: Partial Thromboplastin Time 29.6 SEC (26.7-34.1)
[2025-07-31] MEDS: iohexoL 350 MG/ML 100 ML INFUS..BTL IV (01:49)
[2025-07-31 02:11] VITALS: BP 126/69; PULSE 75; RESP 14; O2SAT 99
--- NOTE | 2025-07-31 02:40 | PC.NURSE ---
Pt comes to ED reporting blood in stool that started today. Pt had colonoscopy at [facility] 3 days ago. Reports it feeling like discomfort in his LLQ, but denies pain and reports the urge to have a BM feels like diarrhea. He is on eliquis for Afib. Pt A&Ox3, respirations even and unlabored, skin p/w/d. He denies shortness of breath, dizziness, or N/V. He has a 20g IV in his left forearm and a 18g in his right forearm. Currently has tranexemic acid infusing @ 32.5 mL/hr. On tele, VSS. He has had multiple episodes of bloody stools while in ED. He ambulates to bathroom. Family at bedside. Call holder within reach. Plan of care on going.
[2025-07-31 02:41] LABS: Hematocrit 33.2 % (42.0-52.0); Hemoglobin 10.6 g/dl (14.0-18.0); Mean Corpuscular HGB Conc 31.9 g/dl (31.0-36.0); Mean Corpuscular Hemoglobin 30.6 pg (27.0-33.0); Mean Corpuscular Volume 96.0 fL (80.0-98.0); NRBC Abs Auto 0.000 X10*3/uL (0.0-0.012); NRBC Pct Auto 0.0 /100WBC (0.0-0.2); Platelet Count 156 X10*3/uL (160-400); Red Blood Count 3.46 X10*6/uL (4.60-5.80); White Blood Count 5.0 X10*3/uL (4.8-10.8)
[2025-07-31 03:26] VITALS: BP 136/69; PULSE 76; RESP 19
--- NOTE | 2025-07-31 03:28 | PC.NURSE ---
Per MD, TXA being discontinued, Pt received 269 mg. Plan to give Kcentra.
[2025-07-31] MEDS: Hum Prothrombin Cplx(PCC)4Fact 2,000 UNIT in Container,Empty 0 ML 480 UNIT IV (03:50)
--- NOTE | 2025-07-31 04:16 | PC.NURSE ---
Report given to sole dyer at [facility] ER.
[2025-07-31 04:28] VITALS: BP 146/88; PULSE 74; RESP 13; TEMP 36.7; O2SAT 99
== END 2025-07-31 04:37 | disposition short-term general hospital (02) ==
PROVIDERS: Emergency Provider Emergency Medicine; PCP Internal Medicine
DX: K92.2 Gastrointestinal hemorrhage, unspecified (principal); K92.1 Melena; R71.0 Precipitous drop in hematocrit; I48.91 Unspecified atrial fibrillation; Z79.899 Other long term (current) drug therapy; Z79.01 Long term (current) use of anticoagulants
CPT/HCPCS: 36415; 74178; 80053; 85025; 85027; 85610; 85730; 86850; 86900; 86901; 96365; 96366; 96367; 99285; 99291; J2151; J7168; Q9967

== ENCOUNTER → 2025-07-31 00:23 | Outpatient (BNV) | payer MEDICARE, OTHER, SELFPAY | PROVIDERS: Emergency Provider Emergency Medicine; PCP Internal Medicine; Visit Provider Radiology Diagnostic Radiology | DX: K62.5 Hemorrhage of anus and rectum (principal) | CPT/HCPCS: 74178 ==